=== PATIENT | male | born 1965 | race Caucasian/White ===

== ENCOUNTER 2017-01-14 23:57 | Inpatient (IN) | payer MEDICAID ==
[~2017-01-14] VITALS: Ht 170.2 cm; Wt 73.3 kg
[2017-01-15] MEDS ORDERED: VANCOMYCIN 1 GM (PMX) 250 ML IVPB STA (01:34)
[2017-01-15] MEDS ORDERED: SODIUM CHLORIDE 0.9% 1L BAG IV* STA (01:34)
[2017-01-15] MEDS ORDERED: DICLOFENAC SODIUM 37.5 MG/ML VIAL IV STA (01:52)
[2017-01-15 02:00] LABS: ADD SCAN DIFF NO
[2017-01-15 02:04] LABS: BASOPHIL # 0.1 10^3/ul (0.0-0.1); BASOPHILS % 0.5 % (0.0-2.0); EOSINOPHILS # 0.3 10^3/ul (0.0-0.5); EOSINOPHILS % 2.5 % (0.0-7.0); HEMATOCRIT 42.4 % (42.0-52.0); HEMOGLOBIN 14.2 g/dl (14.0-18.0); LYMPHOCYTES # 1.7 10^3/ul (0.8-2.9); LYMPHOCYTES % 13.6 % (15.0-51.0); MEAN CORPUSCULAR HEMOGLOBIN 29.6 pg (29.0-33.0); MEAN CORPUSCULAR HGB CONC 33.5 g/dl (32.0-37.0); MEAN CORPUSCULAR VOLUME 88.5 fl (82.0-101.0); MEAN PLATELET VOLUME 9.5 fl (7.4-10.4); MONOCYTES % 7.5 % (0.0-11.0); NEUTROPHIL # 9.7 10^3/ul (1.6-7.5); NEUTROPHILS % 75.1 % (39.0-77.0); PLATELET COUNT 278 10^3/UL (140-415); RED BLOOD COUNT 4.79 10^6/ul (4.70-6.10); RED CELL DISTRIBUTION WIDTH 12.6 % (11.5-14.5); WHITE BLOOD COUNT 12.8 10^3/ul (4.8-10.8)
[2017-01-15 02:16] VITALS: TEMP 98.5
[2017-01-15 02:19] LABS: INR 1.07; PROTIME 13.9 Sec (12.2-14.2); PT RATIO 1.1
[2017-01-15 02:20] LABS: PARTIAL THROMBOPLASTIN TIME 35.8 Sec (25.0-35.0)
[2017-01-15 02:24] LABS: ALBUMIN 3.9 g/dl (3.3-4.9); BILIRUBIN,INDIRECT 0.4 mg/dl (0-1.1); BILIRUBIN,TOTAL 0.4 mg/dl (0.2-1.3); CREATININE 0.79 mg/dl (0.61-1.24); POTASSIUM 4.5 mmol/L (3.5-5.1); TOTAL PROTEIN 7.8 g/dl (6.1-8.1)
[2017-01-15] MEDS ORDERED: SOD CHLORIDE 0.9% 100 ML ONE (02:44)
[2017-01-15] MEDS ORDERED: IOHEXOL 300MG/ML 150 ML BTL ONE (02:44)
--- NOTE | 2017-01-15 03:37 | RADRPT ---
PROCEDURE: CT soft tissue neck with contrast CLINICAL INDICATION: large posterior neck abscess TECHNIQUE: Thin section spiral CT images through the neck after intravenous administration of 1 an d cc of Omnipaque-300. Coronal and sagittal reformations were obtained. The images were reviewed on a PACS workstation. The total CTDIvol is 10.18 mGy and the DLP is 325.04 mGy-cm. One or more of the following dose reduction techniques were used: automated exposure control, adjustment of the mA and/ or kV according to patient size, or use of iterative reconstruction technique. COMPARISON: No prior studies are available for comparison. FINDINGS: The nasopharynx, oropharynx, hypopharynx, and larynx are all normal in appearance. The thyroid is n ormal in size without focal nodule seen. The mandibular and parotid glands are unremarkable in appe arance. No adenopathy is seen. No lytic or blastic bony lesion is seen.. There is extensive skin thickening and inflammation of the skin and subcutaneous soft tissues of the posterior neck extendin g from the C3 to C7 level. Phlegmonous changes most prominent from C4-C6 but there is not a well-de fined drainable fluid collection present. Shotty bilateral cervical nodes are seen. Degenerative c hange of the spine is seen. IMPRESSION: Cellulitis with phlegmonous change of the posterior neck soft tissues most prominent from the C4-C6 level. No definite focal drainable fluid collection. RPTAT: [facility] Physician Tariq Date Time Electronically viewed and signed by Physician Tariq on 01/15/2017 03:37 PRAKASH/
[2017-01-15] MEDS ORDERED: ONDANSETRON 4 MG INJ IV PRN ×2 (04:00→06:30)
[2017-01-15] MEDS ORDERED: ACETAMINOPHEN 325 MG TAB PO PRN ×2 (04:00→06:30)
--- NOTE | 2017-01-15 04:19 | ERA ---
ER Documentation Chief Complaint Date/Time DATE: 01/15/17 TIME: 04:03 Chief Complaint abscess back of neck, states poss insect bite today? HPI 51-year-old male with no significant past medical history presenting with pain in the back of his neck with associated swelling. He states that 2 days ago he felt a lump that was painless in the area. Yesterday however he started getting pain and worsening swelling of the back of his neck. He has associated generalized fatigue but denies any fever, chills, numbness or tingling in his arms or legs, chest pain, shortness of breath, change in vision, or headache. He denies any recent trauma to the area. ROS All systems reviewed and are negative except as per history of present illness. Medications Home Meds No Active Prescriptions or Reported Meds Allergies Allergies: Coded Allergies: No Known Drug Allergies (Verified Allergy, Unknown, 01/15/17) PMhx/Soc Medical and Surgical Hx: pt denies Medical Hx, pt denies Surgical Hx Hx Alcohol Use: No Hx Substance Use: No Hx Tobacco Use: No Smoking Status: Unknown if ever smoked FmHx Family History: No diabetes Physical Exam Vitals Vital Signs Date Time Temp Pulse Resp B/P Pulse Ox O2 Delivery O2 Flow Rate FiO2 01/15/17 02:16 98.5 102 20 147/103 100 Room Air 01/15/17 00:06 98.4 114 20 155/92 100 Physical Exam Const: Well-appearing, no apparent distress, nontoxic Head: Atraumatic Eyes: Normal Conjunctiva ENT: Normal External Ears, Nose and Mouth. Neck: Limited range of motion secondary to pain in the back of his neck. There is a large area extending from his mid cervical spine area down to his upper thoracic area of induration, erythema, warmth with overlying skin ulceration with purulence but no active drainage. No meningismus. It is slightly tender to palpation. There is no palpable crepitus or skin discoloration Resp: Clear to auscultation bilaterally Cardio: Regular rate and rhythm, no murmurs. 2+ distal pulses Abd: Soft, non tender, non distended. Normal bowel sounds Skin: No petechiae or rashes Back: No midline or flank tenderness Ext: No cyanosis, or edema Neur: Awake and alert and oriented 3, strength and sensations intact in all 4 extremities Psych: Normal Mood and Affect Result Diagram: 01/15/17 0131 01/15/17 0131 Results 24 hrs Laboratory Tests Test 01/15/17 01:25 01/15/17 01:31 Lactic Acid Level 0.9mmol/L White Blood Count 12.810^3/ul Red Blood Count 4.7910^6/ul Hemoglobin 14.2g/dl Hematocrit 42.4% Mean Corpuscular Volume 88.5fl Mean Corpuscular Hemoglobin 29.6pg Mean Corpuscular Hemoglobin Concent 33.5g/dl Red Cell Distribution Width 12.6% Platelet Count 46430^3/UL Mean Platelet Volume 9.5fl Neutrophils % 75.1% Lymphocytes % 13.6% Monocytes % 7.5% Eosinophils % 2.5% Basophils % 0.5% Nucleated Red Blood Cells % 0.0/100WBC Neutrophils # 9.710^3/ul Lymphocytes # 1.710^3/ul Monocytes # 1.010^3/ul Eosinophils # 0.310^3/ul Basophils # 0.110^3/ul Nucleated Red Blood Cells # 0.010^3/ul Prothrombin Time 13.9Sec Prothrombin Time Ratio 1.1 INR International Normalized Ratio 1.07 Activated Partial Thromboplast Time 35.8Sec Sodium Level 134mmol/L Potassium Level 4.5mmol/L Chloride Level 99mmol/L Carbon Dioxide Level 27mmol/L Anion Gap 13 Blood Urea Nitrogen 12mg/dl Creatinine 0.79mg/dl Glucose Level 111mg/dl Calcium Level 9.0mg/dl Total Bilirubin 0.4mg/dl Direct Bilirubin 0.00mg/dl Indirect Bilirubin 0.4mg/dl Aspartate Amino Transf (AST/SGOT) 28IU/L Alanine Aminotransferase (ALT/SGPT) 48IU/L Alkaline Phosphatase 95IU/L Total Protein 7.8g/dl Albumin 3.9g/dl Globulin 3.90g/dl Albumin/Globulin Ratio 1.00 Current Medications Medications (Trade) Dose Ordered Sig/Rohan Route PRN Reason Start Time Stop Time Status Last Admin Dose Admin Sodium Chloride 2260 ml 2,260 ml BOLUS OVER 2 HOURS STAT IV* 01/15/17 01:34 01/15/17 01:36 DC 01/15/17 01:54 Vancomycin HCl (Vancocin) 250 ml @ 125 mls/hr ONCE STAT IVPB 01/15/17 01:34 01/15/17 03:33 DC 01/15/17 01:54 Diclofenac Sodium 37.5 mg 37.5 mg ONCE STAT IV 01/15/17 01:52 01/15/17 01:53 DC 01/15/17 01:55 Sodium Chloride (NS) 100 ml @ ud STK-MED ONCE .ROUTE 01/15/17 02:44 01/15/17 02:45 DC Iohexol (Omnipaque 300mg/ ml) 150 ml STK-MED ONCE .ROUTE 01/15/17 02:44 01/15/17 02:45 DC Ondansetron HCl (Zofran Inj) 4 mg BRIDGE ORDER PRN IV NAUSEA AND/OR VOMITING 01/15/17 04:00 01/16/17 03:59 Acetaminophen (Tylenol Tab) 650 mg ER BRIDGE PRN PO MILD PAIN/FEVER 01/15/17 04:00 01/16/17 03:59 Procedures/MDM Labs: CBC shows mild leukocytosis, BMP normal CT soft tissue neck with contrast CLINICAL INDICATION: large posterior neck abscess TECHNIQUE: Thin section spiral CT images through the neck after intravenous administration of 1 and cc of Omnipaque-300. Coronal and sagittal reformations were obtained. The images were reviewed on a PACS workstation. The total CTDIvol is 10.18 mGy and the DLP is 325.04 mGy-cm. One or more of the following dose reduction techniques were used: automated exposure control, adjustment of the mA and/or kV according to patient size, or use of iterative reconstruction technique. COMPARISON: No prior studies are available for comparison. FINDINGS: The nasopharynx, oropharynx, hypopharynx, and larynx are all normal in appearance. The thyroid is normal in size without focal nodule seen. The mandibular and parotid glands are unremarkable in appearance. No adenopathy is seen. No lytic or blastic bony lesion is seen.. There is extensive skin thickening and inflammation of the skin and subcutaneous soft tissues of the posterior neck extending from the C3 to C7 level. Phlegmonous changes most prominent from C4-C6 but there is not a well-defined drainable fluid collection present. Shotty bilateral cervical nodes are seen. Degenerative change of the spine is seen. IMPRESSION: Cellulitis with phlegmonous change of the posterior neck soft tissues most prominent from the C4-C6 level. No definite focal drainable fluid collection. RPTAT: [facility] Physician Tariq Date Time Electronically viewed and signed by Talia Cleaning Physician on 01/15/2017 03 :37 MDM Patient is presenting with a posterior neck cellulitis with possible abscess. Vitals are stable and he is afebrile. He is neurologically intact. I have a low suspicion for necrotizing fasciitis. A CT scan was done to evaluate the extent of the infection as well as to evaluate for any drainable abscess. CT did not show a specific drainable fluid collection but did show phlegmon. It does not seem to invade the spinal column. Patient was started on vancomycin. Blood cultures were sent. Patient will need admission for IV antibiotics and possible evaluation by surgery as this may need debridement. Accepting Care Team: Current data and ongoing care discussed. Time: Time of admission Primary Provider: Corinne Outstanding Data: cultures Departure Diagnosis: Primary Impression: Cellulitis of neck Condition: Serious BRIAN ARCHER MD January 15, 2017 04:13
[2017-01-15] MEDS ORDERED: NACL 0.9% 3 ML SYG IV SCH (06:30)
[2017-01-15] MEDS ORDERED: VANCOMYCIN IV PER PHARMACY XX SCH (06:30)
[2017-01-15] MEDS ORDERED: HYDROCODONE/APAP (5/325) TAB PO PRN ×2 (06:30)
[2017-01-15] MEDS ORDERED: morphine 2 MG INJ IV PRN (06:30)
[2017-01-15] MEDS: PIPER-TAZO 3.375 GM IV (PMX) 100 ML IVPB SCH ×4 (07:04→23:17)
--- NOTE | 2017-01-15 07:56 | HP ---
DATE OF ADMISSION: 01/14/2017 TIME SEEN: 5:45 a.m. CHIEF COMPLAINT: Neck swelling and pain. HISTORY OF PRESENT ILLNESS: The patient is a 51-year-old male with no significant past medical hist ory, who presented to the emergency department complaining of swelling on the back of his neck, as w ell as pain in that area. He stated his symptoms started 2 days ago. He stated at that time there was a swollen area on the back of his neck, which had been progressively getting bigger, as well as the pain has been progressively getting worse. He reported generalized weakness. Denied chest pain , fever or chills. Denied difficulty breathing or swallowing. When he presented to the ER, blood pressure was 155/92, heart rate 114, respiratory rate 20, tempera ture 98.4, oxygen saturation 100% on room air. Labs show a WBC of 12.8. Sodium 134. Otherwise CBC and CMP are within normal limits. CT of the neck with contrast shows cellulitis with phlegmonous ch corey of the posterior neck soft tissues, most prominent from C4-C6 level. No definite focal drainab le fluid collection. The patient had been given vancomycin while he was in the ER. REVIEW OF SYSTEMS: All 12-point review of systems was performed and negative except as mentioned in the HPI. PAST MEDICAL HISTORY: As per HPI. PAST SURGICAL HISTORY: As per HPI. ALLERGIES: NO KNOWN DRUG ALLERGIES. HOME MEDICATIONS: None. PHYSICAL EXAMINATION: VITAL SIGNS: Stable. GENERAL: The patient looks somehow uncomfortable because of the pain on his back. HEENT: No obvious head deformity. Pupils are reactive to light. There is swelling and tenderness at the back of the neck. CARDIOVASCULAR: Tachycardic, with a regular rhythm. LUNGS: Clear. ABDOMEN: Soft, nontender, nondistended. Positive bowel sounds. EXTREMITIES: No edema. NEUROLOGIC: No focal deficits. LABORATORY: Sodium 134. WBC 12.8. Otherwise, CBC and CMP are within normal limits. IMAGING: CT of the neck with results as mentioned in the HPI. IMPRESSION: 1. Cellulitis with phlegmonous change of the posterior neck. 2. Sepsis, as evidenced by leukocytosis and tachycardia, secondary to above. 3. Mild hyponatremia. PLAN: We will place the patient on broad spectrum antibiotics. He will be seen by the surgical derrell villa. Will place an infectious disease consult. Will provide pain medication as needed. Will monitor him closely. Will correct electrolytes as needed. Further workup and management per clinical course. Dictated By: AMANDA MELCHOR/VITOR Conf#: [id number] DID#: [id number]
[2017-01-15] MEDS ORDERED: VANCOMYCIN 1 GM in NS 250 ML IVPB SCH (10:00)
[2017-01-15 14:00] VITALS: BP 129/88; PULSE 68
[2017-01-15 14:16] VITALS: Ht 170.2 cm; Wt 73.3 kg
--- NOTE | 2017-01-15 15:18 | PN ---
Date/Time of Note Date/Time of Note DATE: 01/15/17 TIME: 15:13 Assessment/Plan VTE Prophylaxis VTE Prophylaxis Intervention: ambulation Lines/Catheters [facility] Saline Lock Assessment/Plan Chief Complaint/Hosp Course Assessment and plan 1. Sepsis from posterior neck abscess/cellulitis. Continue on antibiotics for now. We'll get ID consult as well as surgical consult. Antipyretics as needed for fever. 2. Leukocytosis secondary to #1. Continue antibiotics 3. Hyponatremia. Follow up on level in a.m. Disposition and plan: Continue on antibiotics await surgical and ID consult input Discussed in appearance Dr. Nation Problems: Subjective 24 Hr Interval Summary Free Text/Dictation No current distress at this time. Does not report any pain on his posterior neck. Seen with drainage and malodorous on posterior neck abscess Exam/Review of Systems Vital Signs Vitals Vital Signs Date Time Temp Pulse Resp B/P Pulse Ox O2 Delivery O2 Flow Rate FiO2 01/15/17 07:09 93 17 123/98 98 Room Air 01/15/17 02:16 98.5 Intake and Output 01/14/17 01/14/17 01/15/17 15:00 23:00 07:00 Intake Total 2510 ml Balance 2510 ml Exam Constitutional: alert, oriented Psych: nl mood/affect Head: normocephalic Neck: other (abscess seen on posterior side of the neck with whitish pus and malodorous) Respiratory: normal air movement Cardiovascular: regular rate and rhythm Gastrointestinal: non-tender, soft Musculoskeletal: nl extremities to inspection Extremities: normal pulses Results Result Diagram: 01/15/17 0131 01/15/17 0131 Results 24 hrs Laboratory Tests Test 01/15/17 01:25 01/15/17 01:31 Lactic Acid Level 0.9 White Blood Count 12.8 H Red Blood Count 4.79 Hemoglobin 14.2 Hematocrit 42.4 Mean Corpuscular Volume 88.5 Mean Corpuscular Hemoglobin 29.6 Mean Corpuscular Hemoglobin Concent 33.5 Red Cell Distribution Width 12.6 Platelet Count 278 Mean Platelet Volume 9.5 Neutrophils % 75.1 Lymphocytes % 13.6 L Monocytes % 7.5 Eosinophils % 2.5 Basophils % 0.5 Nucleated Red Blood Cells % 0.0 Neutrophils # 9.7 H Lymphocytes # 1.7 Monocytes # 1.0 H Eosinophils # 0.3 Basophils # 0.1 Nucleated Red Blood Cells # 0.0 Prothrombin Time 13.9 Prothrombin Time Ratio 1.1 INR International Normalized Ratio 1.07 Activated Partial Thromboplast Time 35.8 H Sodium Level 134 L Potassium Level 4.5 Chloride Level 99 Carbon Dioxide Level 27 Anion Gap 13 Blood Urea Nitrogen 12 Creatinine 0.79 Glucose Level 111 Calcium Level 9.0 Total Bilirubin 0.4 Direct Bilirubin 0.00 Indirect Bilirubin 0.4 Aspartate Amino Transf (AST/SGOT) 28 Alanine Aminotransferase (ALT/SGPT) 48 Alkaline Phosphatase 95 Total Protein 7.8 Albumin 3.9 Globulin 3.90 H Albumin/Globulin Ratio 1.00 Medications Medications Current Medications Ondansetron HCl (Zofran Inj) 4 mg Q6H PRN IV NAUSEA AND/OR VOMITING; Start 07/24 at 06:30 Acetaminophen (Tylenol Tab) 650 mg Q6H PRN PO PAIN LEVEL 1-3 OR FEVER; Start at 06:30 Acetaminophen/ Hydrocodone Bitart ([place] (5/325)) 1 tab Q6H PRN PO MODERATE PAIN LEVEL 4-6; Start 01/15/17 at 06:30 Acetaminophen/ Hydrocodone Bitart ([place] (5/325)) 2 tab Q6H PRN PO SEVERE PAIN LEVEL 7-10; Start 01/15/17 at 06:30 Morphine Sulfate 2 mg 2 mg Q4H PRN IV SEVERE PAIN LEVEL 7-10; Start 01/15/17 at 06:30 Piperacillin Sod/ Tazobactam Sod 100 ml @ 200 mls/hr Q6 IVPB Last administered on 01/15/17 07:04; Admin Dose 200 MLS/HR; Start 01/15/17 at 06:30 Vancomycin HCl (Vancocin) 250 ml @ 125 mls/hr Q8H IVPB Last administered on 10:13; Admin Dose 125 MLS/HR; Start 01/15/17 at 10:00 Miscellaneous Information (*Rx Drug Level Order Reminder*) 1 ONCE ONCE XX ; Start 01/16/17 at 01:00; Stop 01/16/17 at 01:01 PRIYANKA CAMEJO January 15, 2017 15:18
--- NOTE | 2017-01-15 16:42 | CONS ---
DATE OF ADMISSION: 01/15/2017 DATE OF CONSULTATION: 01/15/2017 TYPE OF CONSULTATION: Infectious Disease. REASON FOR CONSULTATION: Antibiotic management. HISTORY OF PRESENT ILLNESS: Keven Villarreal is a 51-year-old male generally in good health, who present ed to the emergency room with swelling on the back of his neck as well as pain in that area. The sy mptoms have lasted for 2 days. It has been progressively getting bigger and the pain has been worse . Denies any difficulty in swallowing. In the emergency room, his labs were relatively normal, whi te count of 12.8, H and H of 14.2 and 42.4, platelet count of 278,000. BUN and creatinine are 12/0. 79. Soft tissue neck CT shows cellulitis with phlegmonous change in the posterior neck soft tissue, most prominent at C4, C6. No definite focal drainable fluid collection. The patient was started o n vancomycin in the emergency room. PAST MEDICAL HISTORY: Operations as outlined. FAMILY HISTORY: Noncontributory. SOCIAL HISTORY: Does not smoke, drink or abuse drugs. ALLERGIES: NONE TO PENICILLIN, SULFA OR FOODS. MEDICATIONS: Per chart. REVIEW OF SYSTEMS: As per HPI. PHYSICAL EXAMINATION: GENERAL: The patient is a well-developed, well-nourished male who is somewhat uncomfortable because of his neck pain, no acute distress. VITAL SIGNS: Stable. He is afebrile. SKIN: Without generalized rash. NECK: There is swelling and tenderness in the back of the neck. LYMPH NODES: None palpable. CHEST: Decreased breath sounds at the bases. HEART: Tachycardic without murmur or gallop. ABDOMEN: Soft and nontender, without organosplenomegaly or masses. EXTREMITIES: Without cyanosis, clubbing, or edema. RECTAL AND GENITAL: Deferred. NEUROLOGIC: No focal neurological abnormalities. IMPRESSION AND PLAN: The patient presents now with cellulitis of the nape of the neck, the etiology of which is unclear. He will be seen by the surgical team. It is unclear why he has developed thi s cellulitis. We will treat him with vancomycin for the time being. A wound care consultation was put in. Blood cultures have been ordered. I will dictate my findings to the hospitalist. Dictated By: JANELLE VICTOR MD, JD/VITOR Conf#: [id number] DID#: [id number]
[2017-01-15 19:56] VITALS: BP 124/83; RESP 20
[2017-01-15] MEDS: VANCOMYCIN 1 GM in NS 250 ML IVPB SCH (23:11)
[2017-01-16] VITALS (11 sets, daily range): BP systolic 98–129; BP diastolic 59–87; PULSE 78–84; RESP 15–28
[2017-01-16] MEDS: PIPER-TAZO 3.375 GM IV (PMX) 100 ML IVPB SCH ×3 (05:49→18:41)
[2017-01-16 06:21] LABS: ADD SCAN DIFF NO
[2017-01-16 06:29] LABS: BASOPHILS % 0.3 % (0.0-2.0); EOSINOPHILS # 0.5 10^3/ul (0.0-0.5); EOSINOPHILS % 6.6 % (0.0-7.0); HEMATOCRIT 41.6 % (42.0-52.0); HEMOGLOBIN 13.9 g/dl (14.0-18.0); LYMPHOCYTES # 1.3 10^3/ul (0.8-2.9); LYMPHOCYTES % 17.8 % (15.0-51.0); MEAN CORPUSCULAR HEMOGLOBIN 29.6 pg (29.0-33.0); MEAN CORPUSCULAR HGB CONC 33.4 g/dl (32.0-37.0); MEAN CORPUSCULAR VOLUME 88.7 fl (82.0-101.0); MEAN PLATELET VOLUME 9.4 fl (7.4-10.4); MONOCYTE # 0.8 10^3/ul (0.3-0.9); MONOCYTES % 10.7 % (0.0-11.0); NEUTROPHIL # 4.4 10^3/ul (1.6-7.5); NEUTROPHILS % 62.7 % (39.0-77.0); PLATELET COUNT 247 10^3/UL (140-415); RED BLOOD COUNT 4.69 10^6/ul (4.70-6.10); RED CELL DISTRIBUTION WIDTH 12.8 % (11.5-14.5)
[2017-01-16] MEDS: VANCOMYCIN 1 GM in NS 250 ML IVPB SCH ×3 (07:13→22:32)
[2017-01-16 07:54] LABS: CREATININE 0.84 mg/dl (0.61-1.24)
[2017-01-16] MEDS ORDERED: LIDOCAINE 100 MG SYRINGE ONE (12:12)
[2017-01-16] MEDS ORDERED: PROPOFOL 20 ML ONE (12:12)
[2017-01-16] MEDS ORDERED: MIDAZOLAM 1 MG/ML 2 ML INJ ONE (12:13)
[2017-01-16] MEDS ORDERED: FENTAnyl 50 MCG/ML VIAL ONE (12:13)
[2017-01-16] MEDS ORDERED: ONDANSETRON 4 MG INJ ONE (12:13)
[2017-01-16] MEDS ORDERED: DEXAMETHASONE 4 MG/ML 1 ML INJ ONE (12:13)
--- NOTE | 2017-01-16 12:51 | PN ---
Date/Time of Note Date/Time of Note DATE: 01/16/17 TIME: 12:45 Assessment/Plan Lines/Catheters IV Catheter Type (from Nrs): Saline Lock Assessment/Plan Chief Complaint/Hosp Course 1. Posterior neck cellulitis wound and probable abscess -Antibiotics -Warm compress -OR today for debridement and further I&D 2. Generalized rash possible allergy to antibiotics (? Vanco) -Deferred to medical team for further workup. 3. Anemia probably dilutional Monitor 4. Hypertension -Medication and diet optimization 5. Hyponatremia -Please correct with fluid management Thank you, Problems: Subjective 24 Hr Interval Summary Minimal posterior neck pain. Low-grade fever but no chills. No chest pain or shortness of breath. No visual neurologic changes. No dysuria. No abdominal pain. No cough. No seizure. Has generalized rashes. Exam/Review of Systems Vital Signs Vitals Vital Signs Date Time Temp Pulse Resp B/P Pulse Ox O2 Delivery O2 Flow Rate FiO2 01/16/17 07:26 98.0 90 16 101/64 97 01/15/17 14:00 Room Air Intake and Output 01/15/17 01/15/17 01/16/17 15:00 23:00 07:00 Intake Total 100 ml 850 ml 830 ml Balance 100 ml 850 ml 830 ml Exam Constitutional: alert, oriented, No distress Psych: nl mood/affect, No anxiety, No confusion Head: atraumatic, normocephalic, No hematomas Eyes: EOMI, PERRL, nl conjunctiva, No icteric ENMT: mucosa pink and moist, nl external ears & nose, nl lips & teeth Neck: other (Posterior neck erythema wound and induration), supple, No jvd, No non-tender (posterior neck) Respiratory: normal air movement, No congested cough, No labored breathing Cardiovascular: regular rate and rhythm, No edema Gastrointestinal: non-tender, soft, No rebound or guarding Musculoskeletal: nl extremities to inspection, nl gait and stance, No joint tenderness Extremities: No calf tenderness, No cyanosis Neurological: nl mental status, nl speech, nl strength Skin: rash or lesions, No diaphoresis Lymph: nl lymph nodes Results Result Diagram: 01/16/17 0552 01/16/17 0552 PIA OLIVEIRA MD January 16, 2017 12:51
--- NOTE | 2017-01-16 13:54 | CONS ---
DATE OF ADMISSION: 01/15/2017 DATE OF CONSULTATION: 01/15/2017 TYPE OF CONSULTATION: Surgical. REFERRING PHYSICIAN: Ariel Sun MD CHIEF COMPLAINT: 1. Posterior neck cellulitis and possible abscess. 2. Leukocytosis. HISTORY OF PRESENT ILLNESS: Mr. Keven Villarreal is a 51-year-old male who presents with swelling, pain, and redness of the upper back and posterior neck for the past 2 days that has been getting worse, a ssociated with generalized fatigue, but no fevers, chills, visual or neurologic changes, chest pain, shortness of breath, cough, seizure, bloating, abdominal pain, dysuria, or change in bowel habits. The patient's workup in the emergency room found him to be afebrile with stable vitals; however, he had leukocytosis. CT scan of the area identified cellulitis with phlegmonous changes of the head of english ior neck soft tissue, most prominent from C4-C6 level. No definite drainable fluid collection was n oted. The patient is admitted and a surgical consult is obtained for further evaluation and treatme nt. PAST MEDICAL HISTORY: 1. Hypertension. 2. Posterior neck abscess and cellulitis. 3. Leukocytosis. 4. Bronchitis history. PAST SURGICAL HISTORY: Denies. MEDICATIONS: Denies. ALLERGIES: NONE. SOCIAL HISTORY: Drinks alcohol socially. Does not smoke. No recreational drugs. FAMILY HISTORY: Hypertension in mom and siblings. Father with confusion. REVIEW OF SYSTEMS: A 12-point review of systems was negative unless addressed in the HPI. PHYSICAL EXAMINATION: PERTINENT VITAL SIGNS: Temperature is 98.2, pulse 60s to 90s, blood pressure 129/88, saturating 94% on room air. GENERAL: In no acute distress, comfortable, pleasant. HEENT: Pupils are equal and reactive. No scleral icterus. Mucous membranes are moist. NECK: Supple. No JVD; however, the posterior neck with blanching erythema, induration and an open wound with necrotic tissue. PULMONARY: Normal respiratory effort. No wheezing. HEART: S1, S2 present. ABDOMEN: Soft, nontender. EXTREMITIES: No edema. VASCULAR: Capillary refill is 2 seconds. NEUROLOGIC: Alert, oriented, moves all 4 extremities grossly. LABORATORY AND RADIOGRAPHIC: As per chart and HPI. ASSESSMENT AND PLAN: 1. Posterior neck cellulitis, wound and probable abscess. Continue antibiotics, warm compresses an d will need debridement. 2. Leukocytosis secondary to above. Treatment as above. Continue antibiotics. 3. Hypertension. Continue nutrition and medication optimization. 4. Hyponatremia. Please correct with fluid management. 5. Bronchitis history. Continue pulmonary toilet. Thank you very much for consulting me in this patient's care. Dictated By: PIA FLOYD/VITOR Conf#: [id number] DID#: [id number]
[2017-01-16] MEDS ORDERED: DIPHENHYDRAMINE 50 MG INJ IV PRN (14:00)
[2017-01-16] MEDS ORDERED: MEPERIDINE 25 MG INJ IV PRN (14:00)
[2017-01-16] MEDS ORDERED: ONDANSETRON 4 MG INJ IV PRN (14:00)
[2017-01-16] MEDS ORDERED: HYDROmorphONE (0.2 MG/ML) 10ML SYG IV PRN ×3 (14:00)
--- NOTE | 2017-01-16 14:09 | PN ---
Date/Time of Note Date/Time of Note DATE: 01/16/17 TIME: 14:06 Assessment/Plan VTE Prophylaxis VTE Prophylaxis Intervention: SCD's Lines/Catheters IV Catheter Type (from Nrs): Saline Lock Assessment/Plan Chief Complaint/Hosp Course Assessment and plan 1. Sepsis from posterior neck abscess/cellulitis. Continue on antibiotics for now. ID consult following. Await wound cultures result 2. Leukocytosis secondary to #1. Continue antibiotics 3. Hyponatremia. stable will monitor Disposition and plan: Follow-up on final wound culture results. Continue diuretics for now. Follow-up postop Discussed in appearance Dr. Nation Problems: Subjective 24 Hr Interval Summary Free Text/Dictation Patient for debridement of posterior neck wound Exam/Review of Systems Vital Signs Vitals Vital Signs Date Time Temp Pulse Resp B/P Pulse Ox O2 Delivery O2 Flow Rate FiO2 01/16/17 13:34 98.7 01/16/17 07:26 90 16 101/64 97 01/15/17 14:00 Room Air Intake and Output 01/15/17 01/15/17 01/16/17 15:00 23:00 07:00 Intake Total 100 ml 850 ml 830 ml Balance 100 ml 850 ml 830 ml Exam patient for debridement of posterior neck wound Results Result Diagram: 01/16/17 0552 01/16/17 0552 Results 24 hrs Laboratory Tests Test 01/16/17 05:52 White Blood Count 7.0 # Red Blood Count 4.69 L Hemoglobin 13.9 L Hematocrit 41.6 L Mean Corpuscular Volume 88.7 Mean Corpuscular Hemoglobin 29.6 Mean Corpuscular Hemoglobin Concent 33.4 Red Cell Distribution Width 12.8 Platelet Count 247 Mean Platelet Volume 9.4 Neutrophils % 62.7 Lymphocytes % 17.8 Monocytes % 10.7 Eosinophils % 6.6 Basophils % 0.3 Nucleated Red Blood Cells % 0.0 Neutrophils # 4.4 Lymphocytes # 1.3 Monocytes # 0.8 Eosinophils # 0.5 Basophils # 0.0 Nucleated Red Blood Cells # 0.0 Blood Urea Nitrogen 10 Creatinine 0.84 Vancomycin Level Trough 8.1 L Medications Medications Current Medications Ondansetron HCl (Zofran Inj) 4 mg Q6H PRN IV NAUSEA AND/OR VOMITING; Start 07/24 at 06:30 Acetaminophen (Tylenol Tab) 650 mg Q6H PRN PO PAIN LEVEL 1-3 OR FEVER; Start at 06:30 Acetaminophen/ Hydrocodone Bitart ([place] (5/325)) 1 tab Q6H PRN PO MODERATE PAIN LEVEL 4-6; Start 01/15/17 at 06:30 Acetaminophen/ Hydrocodone Bitart ([place] (5/325)) 2 tab Q6H PRN PO SEVERE PAIN LEVEL 7-10; Start 01/15/17 at 06:30 Morphine Sulfate 2 mg 2 mg Q4H PRN IV SEVERE PAIN LEVEL 7-10 Last administered on 01/16/17 14:04; Admin Dose 2 MG; Start 01/15/17 at 06:30 Piperacillin Sod/ Tazobactam Sod 100 ml @ 200 mls/hr Q6 IVPB Last administered on 01/16/17 05:49; Admin Dose 200 MLS/HR; Start 01/15/17 at 06:30 Vancomycin HCl (Vancocin) 250 ml @ 125 mls/hr Q8H IVPB Last administered on 07:13; Admin Dose 125 MLS/HR; Start 01/15/17 at 23:00 PRIYANKA CAMEJO January 16, 2017 14:09
--- NOTE | 2017-01-16 14:19 | OPR ---
Date/Time of Note Date/Time of Note DATE: 01/16/17 TIME: 14:15 Operative Report Procedure Date: January 16, 2017 Preoperative Diagnosis Posterior neck upper back abscess and necrotic wound Postoperative Diagnosis Same, 6 x 2 cm Operation Performed 1. Excisional debridement of skin, subcutaneous, fascia. 11 x 2 cm 2. Incision and drainage of lower posterior neck and upper back abscess Surgeon: PIA OLIVEIRA MD Anesthesia: general Anesthesiologist: NAGA IRVIN Estimated Blood Loss: 10 - 50 ml's Specimens Culture Tissue Tubes/Drains Curlex Complications: None Pt Condition Post Procedure: stable Disposition: PACU Indications Per notes Risks include but are not limited to bleeding, persistent infection, worsening infection, spinal column spread of infection, need for further surgeries, neurologic malfunction, WA, PE, stroke, pneumonia, DVT, organ failures, or even . Patient understands and agrees to proceed with surgery. Procedure Description Patient was brought in on his own bed to the OR. After induction of anesthesia he was placed in lateral decubitus position. All pressure points were well- padded. Patient is already on antibiotics. Timeout was performed. He was prepped and draped in usual sterile fashion. Using electrocautery skin, subcutaneous, and devitalized fascia were excised down to healthier tissue. Hemostasis was obtained. Pockets of pus were identified and drained. Wound was irrigated and packed with Betadine soaked Kerlix. Dry dressing was applied. Patient was taken back to recovery room in stable condition. All counts were correct at the end of the operation 2. PIA OLIVEIRA MD January 16, 2017 14:19
--- NOTE | 2017-01-16 14:23 | PN ---
DATE: 01/16/2017 SUBJECTIVE: No events overnight. The patient is having low-grade fevers. He is in no distress. LABORATORY DATA: WBC 7, no shift, no bands. BUN 10, creatinine 0.84. MICROBIOLOGY: Wound culture growing Staphylococcus aureus, preliminary. ANTIMICROBIALS: The patient is on: 1. IV vancomycin. 2. Zosyn. PHYSICAL EXAMINATION: GENERAL: Well-developed, middle-aged man who is alert, in no distress. HEENT: Head atraumatic, normocephalic. Sclerae anicteric. Buccal mucosa dry. NECK: Supple, trachea midline. There is some tenderness in the back of the neck. CHEST: Rise symmetrical. Breath sounds diminished to bases. HEART: S1, S2. ABDOMEN: Soft, bowel sounds present. EXTREMITIES: Without cyanosis. ASSESSMENT: 1. Posterior neck abscess with cellulitis. 2. Hypertension. 3. Systemic inflammatory response syndrome. PLAN: Remains stable. Continue present care, antibiotics. Await for wound cultures. Pending I an d D. Dictated By: JIMBO MEDRANO REED DIPPER for JANELLE ALVARADO/VITOR Conf#: [id number] DID#: [id number]
[2017-01-17] MEDS: PIPER-TAZO 3.375 GM IV (PMX) 100 ML IVPB SCH ×5 (00:48→23:09)
[2017-01-17] MEDS: VANCOMYCIN 1 GM in NS 250 ML IVPB SCH ×3 (06:42→23:57)
[2017-01-17 07:38] VITALS: BP 107/70; RESP 18
--- NOTE | 2017-01-17 15:19 | PN ---
Date/Time of Note Date/Time of Note DATE: 01/17/17 TIME: 15:17 Assessment/Plan VTE Prophylaxis VTE Prophylaxis Intervention: SCD's Lines/Catheters IV Catheter Type (from Nrsg): Saline Lock Assessment/Plan Chief Complaint/Hosp Course Assessment and plan 1. Sepsis from posterior neck abscess/cellulitis. Continue on antibiotics for now. ID consult following. Status post I&D. Continue wound care per surgeon recommendations 2. Leukocytosis secondary to #1. Continue antibiotics 3. Hyponatremia. stable will monitor Disposition and plan: Continue antibiotics. Continue wound care per surgeon recommendations. Discharge when medically stable and cleared by consultants Discussed in appearance Dr. Nation Problems: Subjective 24 Hr Interval Summary Free Text/Dictation Comfortable at this time. Denies any pain on posterior neck Exam/Review of Systems Vital Signs Vitals Vital Signs Date Time Temp Pulse Resp B/P Pulse Ox O2 Delivery O2 Flow Rate FiO2 01/17/17 07:38 98.2 82 18 107/70 97 01/16/17 14:12 Room Air 01/16/17 13:47 6.0 Intake and Output 01/16/17 01/16/17 01/17/17 15:00 23:00 07:00 Intake Total 950 ml 1010 ml 450 ml Output Total 10 ml 1450 ml Balance 940 ml -440 ml 450 ml Exam Constitutional: alert, oriented Psych: nl mood/affect Neck: non-tender, supple Respiratory: clear to auscultation, normal air movement Cardiovascular: regular rate and rhythm Gastrointestinal: non-tender, soft Musculoskeletal: nl extremities to inspection Neurological: nl mental status, nl speech Skin: other (surgical site on posterior neck with noted dressing in place) Results Result Diagram: 01/16/17 0552 01/16/17 0552 Medications Medications Current Medications Ondansetron HCl (Zofran Inj) 4 mg Q6H PRN IV NAUSEA AND/OR VOMITING; Start 07/24 at 06:30 Acetaminophen (Tylenol Tab) 650 mg Q6H PRN PO PAIN LEVEL 1-3 OR FEVER; Start at 06:30 Acetaminophen/ Hydrocodone Bitart ([place] (5/325)) 1 tab Q6H PRN PO MODERATE PAIN LEVEL 4-6 Last administered on 01/16/17t 16:38; Admin Dose 1 TAB; Start 07/24 at 06:30 Acetaminophen/ Hydrocodone Bitart ([place] (5/325)) 2 tab Q6H PRN PO SEVERE PAIN LEVEL 7-10; Start 01/15/17 at 06:30 Morphine Sulfate 2 mg 2 mg Q4H PRN IV SEVERE PAIN LEVEL 7-10 Last administered on 01/16/17 14:04; Admin Dose 2 MG; Start 01/15/17 at 06:30 Piperacillin Sod/ Tazobactam Sod 100 ml @ 200 mls/hr Q6 IVPB Last administered on 01/17/17 12:34; Admin Dose 200 MLS/HR; Start 01/15/17 at 06:30 Vancomycin HCl (Vancocin) 250 ml @ 125 mls/hr Q8H IVPB Last administered on 06:42; Admin Dose 125 MLS/HR; Start 01/15/17 at 23:00 Miscellaneous Information (*Rx Drug Level Order Reminder*) VANCOMYCIN TROUGH AT 2200 ONCE ONCE XX ; Start 01/17/17 at 22:00; Stop 01/17/17 at 22:01 PRIYANKA CAMEJO January 17, 2017 15:19
[2017-01-17] MEDS: SODIUM HYPOCHLORITE 1/40% 1L IRRIG IRR SCH (18:15)
--- NOTE | 2017-01-17 18:57 | CONS ---
Date/Time of Note Date/Time of Note DATE: 01/17/17 TIME: 18:55 Assessment/Plan Assessment/Plan Chief Complaint/Hosp Course SUBJECTIVE: No events overnight. Sleeping, no fevers MICROBIOLOGY: Wound culture growing Staphylococcus aureus, preliminary. ANTIMICROBIALS: The patient is on: 1. IV vancomycin. 2. Zosyn. PHYSICAL EXAMINATION: GENERAL: Well-developed, middle-aged man who is alert, in no distress. HEENT: Head atraumatic, normocephalic. Sclerae anicteric. Buccal mucosa dry. NECK: Supple, trachea midline. There is some tenderness in the back of the neck. CHEST: Rise symmetrical. Breath sounds diminished to bases. HEART: S1, S2. ABDOMEN: Soft, bowel sounds present. EXTREMITIES: Without cyanosis. ASSESSMENT: 1. Posterior neck abscess with cellulitis, s/p I&d. 2. Hypertension. 3. Systemic inflammatory response syndrome. PLAN: Remains stable. Continue antibiotics. Await for final cultures. DW staff Problems: Consultation Date/Type/Reason Admit Date/Time January 15, 2017 at 03:48 Initial Consult Date Type of Consultation: ID Exam/Review of Systems Vital Signs Vitals Vital Signs Date Time Temp Pulse Resp B/P Pulse Ox O2 Delivery O2 Flow Rate FiO2 01/17/17 07:38 98.2 82 18 107/70 97 01/16/17 14:12 Room Air 01/16/17 13:47 6.0 Intake and Output 01/16/17 01/16/17 01/17/17 15:00 23:00 07:00 Intake Total 950 ml 1010 ml 450 ml Output Total 10 ml 1450 ml Balance 940 ml -440 ml 450 ml Results Result Diagram: 01/16/17 0552 01/16/17 0552 Medications Medications Current Medications Ondansetron HCl (Zofran Inj) 4 mg Q6H PRN IV NAUSEA AND/OR VOMITING; Start 07/24 at 06:30 Acetaminophen (Tylenol Tab) 650 mg Q6H PRN PO PAIN LEVEL 1-3 OR FEVER; Start at 06:30 Acetaminophen/ Hydrocodone Bitart ([place] (5/325)) 1 tab Q6H PRN PO MODERATE PAIN LEVEL 4-6 Last administered on 01/16/17t 16:38; Admin Dose 1 TAB; Start 07/24 at 06:30 Acetaminophen/ Hydrocodone Bitart ([place] (5/325)) 2 tab Q6H PRN PO SEVERE PAIN LEVEL 7-10; Start 01/15/17 at 06:30 Morphine Sulfate 2 mg 2 mg Q4H PRN IV SEVERE PAIN LEVEL 7-10 Last administered on 01/16/17 14:04; Admin Dose 2 MG; Start 01/15/17 at 06:30 Piperacillin Sod/ Tazobactam Sod 100 ml @ 200 mls/hr Q6 IVPB Last administered on 01/17/17 18:44; Admin Dose 200 MLS/HR; Start 01/15/17 at 06:30 Vancomycin HCl (Vancocin) 250 ml @ 125 mls/hr Q8H IVPB Last administered on 15:29; Admin Dose 125 MLS/HR; Start 01/15/17 at 23:00 Miscellaneous Information (*Rx Drug Level Order Reminder*) VANCOMYCIN TROUGH AT 2200 ONCE ONCE XX ; Start 01/17/17 at 22:00; Stop 01/17/17 at 22:01 Sodium Hypochlorite (Dakin'S ([place]il[place] 1/40%)) 1 applic DAILY IRR Last administered on 01/17/17 18:15; Admin Dose 1 APPLIC; Start 01/17/17 at 18:00 JIMBO MEDRANO NP January 17, 2017 18:56
[2017-01-18] MEDS: PIPER-TAZO 3.375 GM IV (PMX) 100 ML IVPB SCH ×2 (05:27→11:46)
[2017-01-18 05:29] LABS: ADD SCAN DIFF NO
[2017-01-18 05:47] LABS: BASOPHILS % 0.7 % (0.0-2.0); EOSINOPHILS # 0.3 10^3/ul (0.0-0.5); EOSINOPHILS % 4.7 % (0.0-7.0); HEMATOCRIT 39.5 % (42.0-52.0); HEMOGLOBIN 13.2 g/dl (14.0-18.0); LYMPHOCYTES # 1.8 10^3/ul (0.8-2.9); LYMPHOCYTES % 30.6 % (15.0-51.0); MEAN CORPUSCULAR HEMOGLOBIN 29.7 pg (29.0-33.0); MEAN CORPUSCULAR HGB CONC 33.4 g/dl (32.0-37.0); MEAN CORPUSCULAR VOLUME 88.8 fl (82.0-101.0); MONOCYTE # 0.5 10^3/ul (0.3-0.9); MONOCYTES % 9.4 % (0.0-11.0); NEUTROPHIL # 3.1 10^3/ul (1.6-7.5); PLATELET COUNT 276 10^3/UL (140-415); RED BLOOD COUNT 4.45 10^6/ul (4.70-6.10); RED CELL DISTRIBUTION WIDTH 12.4 % (11.5-14.5); WHITE BLOOD COUNT 5.8 10^3/ul (4.8-10.8)
[2017-01-18 06:17] LABS: CREATININE 0.89 mg/dl (0.61-1.24)
[2017-01-18 06:18] LABS: CALCIUM 8.1 mg/dl (8.4-10.2)
[2017-01-18] MEDS: VANCOMYCIN 1 GM in NS 250 ML IVPB SCH (06:57)
[2017-01-18 07:29] VITALS: BP 125/81; RESP 16
[2017-01-18] MEDS: SODIUM HYPOCHLORITE 1/40% 1L IRRIG IRR SCH ×2 (08:34→11:46)
--- NOTE | 2017-01-18 12:15 | PN ---
Date/Time of Note Date/Time of Note DATE: 01/18/17 TIME: 12:14 Assessment/Plan VTE Prophylaxis VTE Prophylaxis Intervention: ambulation Lines/Catheters [facility] Saline Lock Assessment/Plan Chief Complaint/Hosp Course Assessment and plan 1. Sepsis from posterior neck abscess/cellulitis. Continue on antibiotics for now. ID consult following. Status post I&D. Continue wound care per surgeon recommendations. Of note culture did show staph aureus 2. Leukocytosis secondary to #1. Continue antibiotics 3. Hyponatremia. stable will monitor Disposition and plan: Continue antibiotics. Continue wound care per surgeon recommendations. Discharge when cleared by consultants. Plan for home health services upon discharge Discussed in appearance Dr. Nation Problems: Subjective 24 Hr Interval Summary Free Text/Dictation Comfortable at present. Denies any pain at this time Exam/Review of Systems Vital Signs Vitals Vital Signs Date Time Temp Pulse Resp B/P Pulse Ox O2 Delivery O2 Flow Rate FiO2 01/18/17 07:29 98.3 82 16 125/81 96 01/16/17 14:12 Room Air 01/16/17 13:47 6.0 Intake and Output 01/17/17 01/17/17 01/18/17 15:00 23:00 07:00 Intake Total 1020 ml 1350 ml 810 ml Output Total 1200 ml 1650 ml Balance 1020 ml 150 ml -840 ml Exam Constitutional: alert, oriented Psych: nl mood/affect Head: normocephalic Neck: other (Wound seen on posterior neck. Status post I&D.) Respiratory: clear to auscultation, normal air movement Cardiovascular: regular rate and rhythm Gastrointestinal: non-tender, soft Musculoskeletal: nl extremities to inspection, nl gait and stance Extremities: normal pulses Neurological: SPRINKLER INSTALLER II-XII intact, nl mental status, nl speech Results Result Diagram: 01/18/17 0507 01/18/17 0507 Results 24 hrs Laboratory Tests Test 01/17/17 22:38 01/18/17 05:07 Vancomycin Level Trough 13.3 White Blood Count 5.8 Red Blood Count 4.45 L Hemoglobin 13.2 L Hematocrit 39.5 L Mean Corpuscular Volume 88.8 Mean Corpuscular Hemoglobin 29.7 Mean Corpuscular Hemoglobin Concent 33.4 Red Cell Distribution Width 12.4 Platelet Count 276 Mean Platelet Volume 9.0 Neutrophils % 53.0 Lymphocytes % 30.6 Monocytes % 9.4 Eosinophils % 4.7 Basophils % 0.7 Nucleated Red Blood Cells % 0.0 Neutrophils # 3.1 Lymphocytes # 1.8 Monocytes # 0.5 Eosinophils # 0.3 Basophils # 0.0 Nucleated Red Blood Cells # 0.0 Sodium Level 140 Potassium Level 4.0 Chloride Level 107 Carbon Dioxide Level 23 Anion Gap 14 Blood Urea Nitrogen 15 Creatinine 0.89 Glucose Level 87 Calcium Level 8.1 L Medications Medications Current Medications Ondansetron HCl (Zofran Inj) 4 mg Q6H PRN IV NAUSEA AND/OR VOMITING; Start 07/24 at 06:30 Acetaminophen (Tylenol Tab) 650 mg Q6H PRN PO PAIN LEVEL 1-3 OR FEVER; Start at 06:30 Acetaminophen/ Hydrocodone Bitart ([place] (5/325)) 1 tab Q6H PRN PO MODERATE PAIN LEVEL 4-6 Last administered on 01/16/17 16:38; Admin Dose 1 TAB; Start 07/24 at 06:30 Acetaminophen/ Hydrocodone Bitart ([place] (5/325)) 2 tab Q6H PRN PO SEVERE PAIN LEVEL 7-10; Start 01/15/17 at 06:30 Morphine Sulfate 2 mg 2 mg Q4H PRN IV SEVERE PAIN LEVEL 7-10 Last administered on 01/16/17 14:04; Admin Dose 2 MG; Start 01/15/17 at 06:30 Piperacillin Sod/ Tazobactam Sod 100 ml @ 200 mls/hr Q6 IVPB Last administered on 01/18/17 11:46; Admin Dose 200 MLS/HR; Start 01/15/17 at 06:30 Vancomycin HCl (Vancocin) 250 ml @ 125 mls/hr Q8H IVPB Last administered on 06:57; Admin Dose 125 MLS/HR; Start 01/15/17 at 23:00 Sodium Hypochlorite (Dakin'S (Dilute 1/40%)) 1 applic DAILY IRR Last administered on 01/18/17 11:46; Admin Dose 1 APPLIC; Start 01/17/17 at 18:00 PRIYANKA CAMEJO January 18, 2017 12:15
[2017-01-18] MEDS: CLINDAMYCIN 600 MG/D5W (PMX) 50 ML IVPB SCH ×2 (15:00→23:56)
--- NOTE | 2017-01-18 15:10 | CONS ---
Date/Time of Note Date/Time of Note DATE: 01/18/17 TIME: 15:09 Assessment/Plan Assessment/Plan Chief Complaint/Hosp Course SUBJECTIVE: No events overnight. No fevers MICROBIOLOGY: Wound culture growing MICHELLE ANTIMICROBIALS: The patient is on: 1. IV vancomycin. 2. Zosyn. PHYSICAL EXAMINATION: GENERAL: Well-developed, middle-aged man who is alert, in no distress. HEENT: Head atraumatic, normocephalic. Sclerae anicteric. Buccal mucosa dry. NECK: Supple, trachea midline. There is some tenderness in the back of the neck. CHEST: Rise symmetrical. Breath sounds diminished to bases. HEART: S1, S2. ABDOMEN: Soft, bowel sounds present. EXTREMITIES: Without cyanosis. ASSESSMENT: 1. Posterior neck abscess with cellulitis, s/p I&d. 2. Hypertension. 3. Systemic inflammatory response syndrome. PLAN: Remains stable. Will change antibiotics to Clindamycin, f/u surgical rec- s DW staff Problems: Consultation Date/Type/Reason Admit Date/Time January 15, 2017 at 03:48 Type of Consultation: ID Exam/Review of Systems Vital Signs Vitals Vital Signs Date Time Temp Pulse Resp B/P Pulse Ox O2 Delivery O2 Flow Rate FiO2 01/18/17 07:29 98.3 82 16 125/81 96 01/16/17 14:12 Room Air 01/16/17 13:47 6.0 Intake and Output 01/17/17 01/17/17 01/18/17 15:00 23:00 07:00 Intake Total 1020 ml 1350 ml 810 ml Output Total 1200 ml 1650 ml Balance 1020 ml 150 ml -840 ml Results Result Diagram: 01/18/17 0507 01/18/17 0507 Results 24 hrs Laboratory Tests Test 01/17/17 22:38 01/18/17 05:07 Vancomycin Level Trough 13.3 White Blood Count 5.8 Red Blood Count 4.45 L Hemoglobin 13.2 L Hematocrit 39.5 L Mean Corpuscular Volume 88.8 Mean Corpuscular Hemoglobin 29.7 Mean Corpuscular Hemoglobin Concent 33.4 Red Cell Distribution Width 12.4 Platelet Count 276 Mean Platelet Volume 9.0 Neutrophils % 53.0 Lymphocytes % 30.6 Monocytes % 9.4 Eosinophils % 4.7 Basophils % 0.7 Nucleated Red Blood Cells % 0.0 Neutrophils # 3.1 Lymphocytes # 1.8 Monocytes # 0.5 Eosinophils # 0.3 Basophils # 0.0 Nucleated Red Blood Cells # 0.0 Sodium Level 140 Potassium Level 4.0 Chloride Level 107 Carbon Dioxide Level 23 Anion Gap 14 Blood Urea Nitrogen 15 Creatinine 0.89 Glucose Level 87 Calcium Level 8.1 L Medications Medications Current Medications Ondansetron HCl (Zofran Inj) 4 mg Q6H PRN IV NAUSEA AND/OR VOMITING; Start 07/24 at 06:30 Acetaminophen (Tylenol Tab) 650 mg Q6H PRN PO PAIN LEVEL 1-3 OR FEVER; Start at 06:30 Acetaminophen/ Hydrocodone Bitart ([place] (5/325)) 1 tab Q6H PRN PO MODERATE PAIN LEVEL 4-6 Last administered on 01/16/17 16:38; Admin Dose 1 TAB; Start 07/24 at 06:30 Acetaminophen/ Hydrocodone Bitart ([place] (5/325)) 2 tab Q6H PRN PO SEVERE PAIN LEVEL 7-10; Start 01/15/17 at 06:30 Morphine Sulfate 2 mg 2 mg Q4H PRN IV SEVERE PAIN LEVEL 7-10 Last administered on 01/16/17 14:04; Admin Dose 2 MG; Start 01/15/17 at 06:30 Piperacillin Sod/ Tazobactam Sod 100 ml @ 200 mls/hr Q6 IVPB Last administered on 01/18/17 11:46; Admin Dose 200 MLS/HR; Start 01/15/17 at 06:30 Vancomycin HCl (Vancocin) 250 ml @ 125 mls/hr Q8H IVPB Last administered on 06:57; Admin Dose 125 MLS/HR; Start 01/15/17 at 23:00 Sodium Hypochlorite (Dakin'S (Dilute 1/40%)) 1 applic DAILY IRR Last administered on 01/18/17 11:46; Admin Dose 1 APPLIC; Start 01/17/17 at 18:00 JIMBO MEDRANO NP January 18, 2017 15:10
[2017-01-18 20:00] VITALS: BP 126/72; PULSE 74; RESP 18
[2017-01-19] MEDS: CLINDAMYCIN 600 MG/D5W (PMX) 50 ML IVPB SCH ×3 (05:13→18:56)
[2017-01-19 06:12] LABS: ADD SCAN DIFF NO
[2017-01-19 06:20] LABS: BASOPHIL # 0.1 10^3/ul (0.0-0.1); BASOPHILS % 0.7 % (0.0-2.0); EOSINOPHILS # 0.3 10^3/ul (0.0-0.5); EOSINOPHILS % 4.3 % (0.0-7.0); HEMATOCRIT 42.4 % (42.0-52.0); HEMOGLOBIN 14.4 g/dl (14.0-18.0); LYMPHOCYTES # 1.8 10^3/ul (0.8-2.9); MEAN CORPUSCULAR HEMOGLOBIN 29.8 pg (29.0-33.0); MEAN CORPUSCULAR VOLUME 87.6 fl (82.0-101.0); MEAN PLATELET VOLUME 8.9 fl (7.4-10.4); MONOCYTE # 0.6 10^3/ul (0.3-0.9); MONOCYTES % 9.4 % (0.0-11.0); NEUTROPHIL # 3.9 10^3/ul (1.6-7.5); NEUTROPHILS % 57.5 % (39.0-77.0); PLATELET COUNT 292 10^3/UL (140-415); RED BLOOD COUNT 4.84 10^6/ul (4.70-6.10); RED CELL DISTRIBUTION WIDTH 12.3 % (11.5-14.5); WHITE BLOOD COUNT 6.8 10^3/ul (4.8-10.8)
[2017-01-19 06:49] LABS: POTASSIUM 3.4 mmol/L (3.5-5.1)
[2017-01-19 06:51] LABS: CREATININE 0.85 mg/dl (0.61-1.24)
[2017-01-19 06:52] LABS: CALCIUM 8.3 mg/dl (8.4-10.2)
[2017-01-19 07:32] VITALS: BP 129/84; RESP 16
--- NOTE | 2017-01-19 11:13 | PN ---
Date/Time of Note Date/Time of Note DATE: 01/17/17 TIME: 11:10 Assessment/Plan Lines/Catheters IV Catheter Type (from [facility]): Saline Lock Gibbons in Place (from [facility]): No Assessment/Plan Chief Complaint/Hosp Course 1. Posterior neck/upper back cellulitis, wound and abscess s/p I&D&D 01/16 -Antibiotics -Warm compress -Local care -Nutritional optimization -Vit C -Off load 2. Generalized rash possible allergy to antibiotics. Improved 3. Anemia probably dilutional Monitor 4. Hypertension -Medication and diet optimization Thank you, Late entry 01/17 Problems: Subjective 24 Hr Interval Summary Minimal posterior neck pain. No fever nor chills. No chest pain or shortness of breath. No visual neurologic changes. No dysuria. No abdominal pain. No cough. No seizure. Rash improved Exam/Review of Systems Vital Signs Vitals Vital Signs Date Time Temp Pulse Resp B/P Pulse Ox O2 Delivery O2 Flow Rate FiO2 01/19/17 07:32 98.4 83 16 129/84 96 01/18/17 20:00 Room Air 01/16/17 13:47 6.0 Intake and Output 01/18/17 01/18/17 01/19/17 15:00 23:00 07:00 Intake Total 250 ml 1160 ml 940 ml Output Total 700 ml Balance 250 ml 460 ml 940 ml Exam Free Text/Dictation Constitutional: alert, oriented, No distress Psych: nl mood/affect, No anxiety, No confusion Head: atraumatic, normocephalic, No hematomas Eyes: EOMI, PERRL, nl conjunctiva, No icteric ENMT: mucosa pink and moist, nl external ears & nose, nl lips & teeth Neck: Posterior neck/upper back wound with packing, supple, No jvd, No non- tender (posterior neck) Respiratory: normal air movement, No congested cough, No labored breathing Cardiovascular: regular rate and rhythm, No edema Gastrointestinal: non-tender, soft, No rebound or guarding Musculoskeletal: nl extremities to inspection, nl gait and stance, No joint tenderness Extremities: No calf tenderness, No cyanosis Neurological: nl mental status, nl speech, nl strength Skin: Wound as above, No diaphoresis Lymph: nl lymph nodes Results Result Diagram: 01/19/17 0550 01/19/17 0550 PAI OLIVEIRA MD January 19, 2017 11:12
--- NOTE | 2017-01-19 11:13 | PN ---
Date/Time of Note Date/Time of Note DATE: 01/18/17 TIME: 11:13 Assessment/Plan Lines/Catheters IV Catheter Type (from [facility]): Saline Lock Gibbons in Place (from [facility]): No Assessment/Plan Chief Complaint/Hosp Course 1. Posterior neck/upper back cellulitis, wound and abscess s/p I&D&D 01/16 -Antibiotics -Warm compress -Local care -Nutritional optimization -Vit C -Off load 2. Generalized rash possible allergy to antibiotics. Improved 3. Anemia probably dilutional Monitor 4. Hypertension -Medication and diet optimization Thank you, Late entry 01/18 Problems: Subjective 24 Hr Interval Summary Minimal posterior neck pain. No fever nor chills. No chest pain or shortness of breath. No visual neurologic changes. No dysuria. No abdominal pain. No cough. No seizure. Rash improved Exam/Review of Systems Vital Signs Vitals Vital Signs Date Time Temp Pulse Resp B/P Pulse Ox O2 Delivery O2 Flow Rate FiO2 01/19/17 07:32 98.4 83 16 129/84 96 01/18/17 20:00 Room Air 01/16/17 13:47 6.0 Intake and Output 01/18/17 01/18/17 01/19/17 15:00 23:00 07:00 Intake Total 250 ml 1160 ml 940 ml Output Total 700 ml Balance 250 ml 460 ml 940 ml Exam Free Text/Dictation Constitutional: alert, oriented, No distress Psych: nl mood/affect, No anxiety, No confusion Head: atraumatic, normocephalic, No hematomas Eyes: EOMI, PERRL, nl conjunctiva, No icteric ENMT: mucosa pink and moist, nl external ears & nose, nl lips & teeth Neck: Posterior neck/upper back wound with packing, supple, No jvd, No non- tender (posterior neck) Respiratory: normal air movement, No congested cough, No labored breathing Cardiovascular: regular rate and rhythm, No edema Gastrointestinal: non-tender, soft, No rebound or guarding Musculoskeletal: nl extremities to inspection, nl gait and stance, No joint tenderness Extremities: No calf tenderness, No cyanosis Neurological: nl mental status, nl speech, nl strength Skin: Wound as above, No diaphoresis Lymph: nl lymph nodes Results Result Diagram: 01/19/17 0550 01/19/17 0550 PIA OLIVEIRA MD January 19, 2017 11:13
--- NOTE | 2017-01-19 11:14 | PN ---
Date/Time of Note Date/Time of Note DATE: 01/19/17 TIME: 11:13 Assessment/Plan Lines/Catheters IV Catheter Type (from [facility]): Saline Lock Gibbons in Place (from [facility]): No Assessment/Plan Chief Complaint/Hosp Course 1. Posterior neck/upper back cellulitis, wound and abscess s/p I&D&D 01/16 -Antibiotics -Warm compress -Local care -Nutritional optimization -Vit C -Off load -DC planning per primary team 2. Generalized rash possible allergy to antibiotics. Improved 3. Anemia probably dilutional Monitor 4. Hypertension -Medication and diet optimization Thank you, Problems: Subjective 24 Hr Interval Summary Minimal posterior neck pain. No fever nor chills. No chest pain or shortness of breath. No visual neurologic changes. No dysuria. No abdominal pain. No cough. No seizure. Rash improved Exam/Review of Systems Vital Signs Vitals Vital Signs Date Time Temp Pulse Resp B/P Pulse Ox O2 Delivery O2 Flow Rate FiO2 01/19/17 07:32 98.4 83 16 129/84 96 01/18/17 20:00 Room Air 01/16/17 13:47 6.0 Intake and Output 01/18/17 01/18/17 01/19/17 15:00 23:00 07:00 Intake Total 250 ml 1160 ml 940 ml Output Total 700 ml Balance 250 ml 460 ml 940 ml Exam Free Text/Dictation Constitutional: alert, oriented, No distress Psych: nl mood/affect, No anxiety, No confusion Head: atraumatic, normocephalic, No hematomas Eyes: EOMI, PERRL, nl conjunctiva, No icteric ENMT: mucosa pink and moist, nl external ears & nose, nl lips & teeth Neck: Posterior neck/upper back wound with packing, supple, No jvd, No non- tender (posterior neck) Respiratory: normal air movement, No congested cough, No labored breathing Cardiovascular: regular rate and rhythm, No edema Gastrointestinal: non-tender, soft, No rebound or guarding Musculoskeletal: nl extremities to inspection, nl gait and stance, No joint tenderness Extremities: No calf tenderness, No cyanosis Neurological: nl mental status, nl speech, nl strength Skin: Wound as above, No diaphoresis Lymph: nl lymph nodes Results Result Diagram: 01/19/17 0550 01/19/17 0550 PIA OLIVEIRA MD January 19, 2017 11:14
[2017-01-19] MEDS ORDERED: POTASSIUM CHLORIDE (SR) 20 MEQ TAB PO STA (11:25)
--- NOTE | 2017-01-19 11:32 | PN ---
Date/Time of Note Date/Time of Note DATE: 01/19/17 TIME: 11:30 Assessment/Plan VTE Prophylaxis VTE Prophylaxis Intervention: SCD's Lines/Catheters IV Catheter Type (from [facility]): Saline Lock Urinary Cath still in place: No Assessment/Plan Assessment/Plan 1. Sepsis from posterior neck abscess/cellulitis. Continue on antibiotics for now. ID consult following. Status post I&D. Continue wound care per surgeon recommendations. Of note culture did show staph aureus 2. Leukocytosis secondary to #1. Continue antibiotics 3. Hyponatremia. stable will monitor Disposition and plan: Continue antibiotics. switched to IV clindamycin, d/c plan to home with home helath and PO clindamycin on thursday or thursday Subjective 24 Hr Interval Summary Free Text/Dictation s/p wound cx grew staph aureus, BP stable, afebrile, WBCnormal Exam/Review of Systems Vital Signs Vitals Vital Signs Date Time Temp Pulse Resp B/P Pulse Ox O2 Delivery O2 Flow Rate FiO2 01/19/17 07:32 98.4 83 16 129/84 96 01/18/17 20:00 Room Air 01/16/17 13:47 6.0 Intake and Output 01/18/17 01/18/17 01/19/17 15:00 23:00 07:00 Intake Total 250 ml 1160 ml 940 ml Output Total 700 ml Balance 250 ml 460 ml 940 ml Exam Constitutional: alert, oriented Psych: nl mood/affect Head: normocephalic Neck: other (Wound seen on posterior neck. Status post I&D.) Respiratory: clear to auscultation, normal air movement Cardiovascular: regular rate and rhythm Gastrointestinal: non-tender, soft Musculoskeletal: nl extremities to inspection, nl gait and stance Extremities: normal pulses Neurological: LEAD SYSTEMS ARCHITECT II-XII intact, nl mental status, nl speech Results Result Diagram: 01/19/17 0550 01/19/17 0550 Results 24 hrs Laboratory Tests Test 01/19/17 05:50 White Blood Count 6.8 Red Blood Count 4.84 Hemoglobin 14.4 Hematocrit 42.4 Mean Corpuscular Volume 87.6 Mean Corpuscular Hemoglobin 29.8 Mean Corpuscular Hemoglobin Concent 34.0 Red Cell Distribution Width 12.3 Platelet Count 292 Mean Platelet Volume 8.9 Neutrophils % 57.5 Lymphocytes % 26.0 Monocytes % 9.4 Eosinophils % 4.3 Basophils % 0.7 Nucleated Red Blood Cells % 0.0 Neutrophils # 3.9 Lymphocytes # 1.8 Monocytes # 0.6 Eosinophils # 0.3 Basophils # 0.1 Nucleated Red Blood Cells # 0.0 Sodium Level 139 Potassium Level 3.4 L Chloride Level 105 Carbon Dioxide Level 23 Anion Gap 14 Blood Urea Nitrogen 14 Creatinine 0.85 Glucose Level 127 # Calcium Level 8.3 L Medications Medications Current Medications Ondansetron HCl (Zofran Inj) 4 mg Q6H PRN IV NAUSEA AND/OR VOMITING; Start 07/24 at 06:30 Acetaminophen (Tylenol Tab) 650 mg Q6H PRN PO PAIN LEVEL 1-3 OR FEVER; Start at 06:30 Acetaminophen/ Hydrocodone Bitart ([place] (5/325)) 1 tab Q6H PRN PO MODERATE PAIN LEVEL 4-6 Last administered on 01/16/17 16:38; Admin Dose 1 TAB; Start 07/24 at 06:30 Acetaminophen/ Hydrocodone Bitart ([place] (5/325)) 2 tab Q6H PRN PO SEVERE PAIN LEVEL 7-10; Start 01/15/17 at 06:30 Morphine Sulfate (morphine) 2 mg Q4H PRN IV SEVERE PAIN LEVEL 7-10 Last administered on 01/16/17 14:04; Admin Dose 2 MG; Start 01/15/17 at 06:30 Sodium Hypochlorite 1 applic 1 applic DAILY IRR Last administered on 01/18/17 11:46; Admin Dose 1 APPLIC; Start 01/17/17 at 18:00 Clindamycin HCl/ Dextrose (Cleocin 600 Mg/ D5W (Pmx)) 50 ml @ 50 mls/hr Q6 IVPB Last administered on 01/19/17 05:13; Admin Dose 50 MLS/HR; Start 01/18/17 at 18:00 STEVIE MORAN MD January 19, 2017 11:32
--- NOTE | 2017-01-19 13:09 | CONS ---
Date/Time of Note Date/Time of Note DATE: 01/19/17 TIME: 13:08 Assessment/Plan Assessment/Plan Chief Complaint/Hosp Course SUBJECTIVE: No events overnight. No fevers MICROBIOLOGY: Wound culture growing MICHELLE ANTIMICROBIALS: The patient is on Clindamycin PHYSICAL EXAMINATION: GENERAL: Well-developed, middle-aged man who is alert, in no distress. HEENT: Head atraumatic, normocephalic. Sclerae anicteric. Buccal mucosa dry. NECK: Supple, trachea midline. There is some tenderness in the back of the neck. CHEST: Rise symmetrical. Breath sounds diminished to bases. HEART: S1, S2. ABDOMEN: Soft, bowel sounds present. EXTREMITIES: Without cyanosis. ASSESSMENT: 1. Posterior neck abscess with cellulitis, s/p I&d===> pt has large wound with packing. 2. Hypertension. 3. Systemic inflammatory response syndrome. PLAN: Remains stable. Continue abx and probiotics, wound care per surgical rec -s DW pt Problems: Consultation Date/Type/Reason Admit Date/Time January 15, 2017 at 03:48 Type of Consultation: ID Exam/Review of Systems Vital Signs Vitals Vital Signs Date Time Temp Pulse Resp B/P Pulse Ox O2 Delivery O2 Flow Rate FiO2 01/19/17 07:32 98.4 83 16 129/84 96 01/18/17 20:00 Room Air 01/16/17 13:47 6.0 Intake and Output 01/18/17 01/18/17 01/19/17 15:00 23:00 07:00 Intake Total 250 ml 1160 ml 940 ml Output Total 700 ml Balance 250 ml 460 ml 940 ml Results Result Diagram: 01/19/17 0550 01/19/17 0550 Results 24 hrs Laboratory Tests Test 01/19/17 05:50 White Blood Count 6.8 Red Blood Count 4.84 Hemoglobin 14.4 Hematocrit 42.4 Mean Corpuscular Volume 87.6 Mean Corpuscular Hemoglobin 29.8 Mean Corpuscular Hemoglobin Concent 34.0 Red Cell Distribution Width 12.3 Platelet Count 292 Mean Platelet Volume 8.9 Neutrophils % 57.5 Lymphocytes % 26.0 Monocytes % 9.4 Eosinophils % 4.3 Basophils % 0.7 Nucleated Red Blood Cells % 0.0 Neutrophils # 3.9 Lymphocytes # 1.8 Monocytes # 0.6 Eosinophils # 0.3 Basophils # 0.1 Nucleated Red Blood Cells # 0.0 Sodium Level 139 Potassium Level 3.4 L Chloride Level 105 Carbon Dioxide Level 23 Anion Gap 14 Blood Urea Nitrogen 14 Creatinine 0.85 Glucose Level 127 # Calcium Level 8.3 L Medications Medications Current Medications Ondansetron HCl (Zofran Inj) 4 mg Q6H PRN IV NAUSEA AND/OR VOMITING; Start 07/24 at 06:30 Acetaminophen (Tylenol Tab) 650 mg Q6H PRN PO PAIN LEVEL 1-3 OR FEVER; Start at 06:30 Acetaminophen/ Hydrocodone Bitart ([place] (5/325)) 1 tab Q6H PRN PO MODERATE PAIN LEVEL 4-6 Last administered on 01/16/17 16:38; Admin Dose 1 TAB; Start 07/24 at 06:30 Acetaminophen/ Hydrocodone Bitart ([place] (5/325)) 2 tab Q6H PRN PO SEVERE PAIN LEVEL 7-10; Start 01/15/17 at 06:30 Morphine Sulfate (morphine) 2 mg Q4H PRN IV SEVERE PAIN LEVEL 7-10 Last administered on 01/16/17 14:04; Admin Dose 2 MG; Start 01/15/17 at 06:30 Sodium Hypochlorite 1 applic 1 applic DAILY IRR Last administered on 01/18/17 11:46; Admin Dose 1 APPLIC; Start 01/17/17 at 18:00 Clindamycin HCl/ Dextrose (Cleocin 600 Mg/ D5W (Pmx)) 50 ml @ 50 mls/hr Q6 IVPB Last administered on 01/19/17 05:13; Admin Dose 50 MLS/HR; Start 01/18/17 at 18:00 JIMBO MEDRANO NP January 19, 2017 13:09
[2017-01-19] MEDS ORDERED: LORAZEPAM 2 MG INJ IV ONE (15:00)
[2017-01-19] MEDS ORDERED: morphine 2 MG INJ IV PRN (15:00)
[2017-01-19] MEDS: SODIUM HYPOCHLORITE 1/40% 1L IRRIG IRR SCH (15:15)
[2017-01-19 19:19] VITALS: BP 139/92; RESP 20
[2017-01-19] MEDS: L ACIDOPHIL/B LACTIS/B LONGUM CAPSULE PO SCH (22:08)
[2017-01-20] MEDS: CLINDAMYCIN 600 MG/D5W (PMX) 50 ML IVPB SCH ×5 (00:57→23:45)
[2017-01-20 06:10] LABS: ADD SCAN DIFF NO; BASOPHIL # 0.1 10^3/ul (0.0-0.1); BASOPHILS % 1.1 % (0.0-2.0); EOSINOPHILS # 0.3 10^3/ul (0.0-0.5); EOSINOPHILS % 4.3 % (0.0-7.0); HEMATOCRIT 42.7 % (42.0-52.0); HEMOGLOBIN 14.6 g/dl (14.0-18.0); LYMPHOCYTES # 2.1 10^3/ul (0.8-2.9); LYMPHOCYTES % 27.9 % (15.0-51.0); MEAN CORPUSCULAR HEMOGLOBIN 29.7 pg (29.0-33.0); MEAN CORPUSCULAR HGB CONC 34.2 g/dl (32.0-37.0); MEAN CORPUSCULAR VOLUME 86.8 fl (82.0-101.0); MONOCYTE # 0.6 10^3/ul (0.3-0.9); MONOCYTES % 7.9 % (0.0-11.0); NEUTROPHILS % 54.5 % (39.0-77.0); PLATELET COUNT 324 10^3/UL (140-415); RED BLOOD COUNT 4.92 10^6/ul (4.70-6.10); RED CELL DISTRIBUTION WIDTH 12.2 % (11.5-14.5); WHITE BLOOD COUNT 7.4 10^3/ul (4.8-10.8)
[2017-01-20 06:24] LABS: CREATININE 0.8 mg/dl (0.61-1.24)
[2017-01-20 06:25] LABS: CALCIUM 8.3 mg/dl (8.4-10.2)
[2017-01-20 07:25] VITALS: BP 130/89; RESP 20
[2017-01-20] MEDS: L ACIDOPHIL/B LACTIS/B LONGUM CAPSULE PO SCH ×2 (09:48→20:24)
[2017-01-20] MEDS: SODIUM HYPOCHLORITE 1/40% 1L IRRIG IRR SCH (09:48)
--- NOTE | 2017-01-20 12:39 | CONS ---
Date/Time of Note Date/Time of Note DATE: 01/20/17 TIME: 12:38 Assessment/Plan Assessment/Plan Chief Complaint/Hosp Course SUBJECTIVE: No events overnight. No fevers. Alert, feels good MICROBIOLOGY: Wound culture growing MICHELLE ANTIMICROBIALS: The patient is on Clindamycin PHYSICAL EXAMINATION: GENERAL: Well-developed, middle-aged man who is alert, in no distress. HEENT: Head atraumatic, normocephalic. Sclerae anicteric. Buccal mucosa dry. NECK: Supple, trachea midline. There is some tenderness in the back of the neck. CHEST: Rise symmetrical. Breath sounds diminished to bases. HEART: S1, S2. ABDOMEN: Soft, bowel sounds present. EXTREMITIES: Without cyanosis. ASSESSMENT: 1. Posterior neck folliculitis with abscess, s/p I&d===> pt has large wound with packing. 2. Hypertension. 3. Systemic inflammatory response syndrome. PLAN: Remains stable. Continue abx and probiotics, wound care per surgical rec -s DW pt Problems: Consultation Date/Type/Reason Admit Date/Time January 15, 2017 at 03:48 Type of Consultation: ID Exam/Review of Systems Vital Signs Vitals Vital Signs Date Time Temp Pulse Resp B/P Pulse Ox O2 Delivery O2 Flow Rate FiO2 01/20/17 07:25 98.8 81 20 130/89 98 01/18/17 20:00 Room Air 01/16/17 13:47 6.0 Intake and Output 01/19/17 01/19/17 01/20/17 15:00 23:00 07:00 Intake Total 100 ml 850 ml Balance 100 ml 850 ml Results Result Diagram: 01/20/17 0517 01/20/17 0517 Results 24 hrs Laboratory Tests Test 01/20/17 05:17 White Blood Count 7.4 Red Blood Count 4.92 Hemoglobin 14.6 Hematocrit 42.7 Mean Corpuscular Volume 86.8 Mean Corpuscular Hemoglobin 29.7 Mean Corpuscular Hemoglobin Concent 34.2 Red Cell Distribution Width 12.2 Platelet Count 324 Mean Platelet Volume 9.0 Neutrophils % 54.5 Lymphocytes % 27.9 Monocytes % 7.9 Eosinophils % 4.3 Basophils % 1.1 Nucleated Red Blood Cells % 0.0 Neutrophils # 4.0 Lymphocytes # 2.1 Monocytes # 0.6 Eosinophils # 0.3 Basophils # 0.1 Nucleated Red Blood Cells # 0.0 Sodium Level 139 Potassium Level 4.0 Chloride Level 105 Carbon Dioxide Level 24 Anion Gap 14 Blood Urea Nitrogen 15 Creatinine 0.80 Glucose Level 97 Calcium Level 8.3 L Medications Medications Current Medications Ondansetron HCl (Zofran Inj) 4 mg Q6H PRN IV NAUSEA AND/OR VOMITING; Start 07/24 at 06:30 Acetaminophen (Tylenol Tab) 650 mg Q6H PRN PO PAIN LEVEL 1-3 OR FEVER; Start at 06:30 Acetaminophen/ Hydrocodone Bitart ([place] (5/325)) 1 tab Q6H PRN PO MODERATE PAIN LEVEL 4-6 Last administered on 01/16/17 16:38; Admin Dose 1 TAB; Start 07/24 at 06:30 Acetaminophen/ Hydrocodone Bitart ([place] (5/325)) 2 tab Q6H PRN PO SEVERE PAIN LEVEL 7-10; Start 01/15/17 at 06:30 Morphine Sulfate (morphine) 2 mg Q4H PRN IV SEVERE PAIN LEVEL 7-10 Last administered on 01/16/17 14:04; Admin Dose 2 MG; Start 01/15/17 at 06:30 Sodium Hypochlorite 1 applic 1 applic DAILY IRR Last administered on 01/20/17 09:48; Admin Dose 1 APPLIC; Start 01/17/17 at 18:00 Clindamycin HCl/ Dextrose (Cleocin 600 Mg/ D5W (Pmx)) 50 ml @ 50 mls/hr Q6 IVPB Last administered on 01/20/17 11:59; Admin Dose 50 MLS/HR; Start 01/18/17 at 18:00 Lactobacillus Acidophilus (Florajen3 Capsule) 1 each BID PO Last administered on 01/20/17 09:48; Admin Dose 1 EACH; Start 01/19/17 at 21:00 JIMBO MEDRANO NP January 20, 2017 12:39
--- NOTE | 2017-01-20 13:35 | PN ---
Date/Time of Note Date/Time of Note DATE: 01/20/17 TIME: 13:34 Assessment/Plan Lines/Catheters IV Catheter Type (from Nrs): Saline Lock Gibbons in Place (from Nrs): No Assessment/Plan Chief Complaint/Hosp Course 1. Posterior neck/upper back cellulitis, wound and abscess s/p I&D&D 01/16 -Antibiotics -Warm compress -Local care -Nutritional optimization -Vit C -Off load -DC planning per primary team 2. Generalized rash possible allergy to antibiotics. Improved 3. Anemia probably dilutional Monitor 4. Hypertension -Medication and diet optimization Thank you, Problems: Subjective 24 Hr Interval Summary Minimal posterior neck pain. No fever nor chills. No chest pain or shortness of breath. No visual neurologic changes. No dysuria. No abdominal pain. No cough. No seizure. Rash improved Exam/Review of Systems Vital Signs Vitals Vital Signs Date Time Temp Pulse Resp B/P Pulse Ox O2 Delivery O2 Flow Rate FiO2 01/20/17 07:25 98.8 81 20 130/89 98 01/18/17 20:00 Room Air 01/16/17 13:47 6.0 Intake and Output 01/19/17 01/19/17 01/20/17 15:00 23:00 07:00 Intake Total 100 ml 850 ml Balance 100 ml 850 ml Exam Free Text/Dictation Constitutional: alert, oriented, No distress Psych: nl mood/affect, No anxiety, No confusion Head: atraumatic, normocephalic, No hematomas Eyes: EOMI, PERRL, nl conjunctiva, No icteric ENMT: mucosa pink and moist, nl external ears & nose, nl lips & teeth Neck: Posterior neck/upper back wound with packing, supple, No jvd, No non- tender (posterior neck) Respiratory: normal air movement, No congested cough, No labored breathing Cardiovascular: regular rate and rhythm, No edema Gastrointestinal: non-tender, soft, No rebound or guarding Musculoskeletal: nl extremities to inspection, nl gait and stance, No joint tenderness Extremities: No calf tenderness, No cyanosis Neurological: nl mental status, nl speech, nl strength Skin: Wound as above, No diaphoresis Lymph: nl lymph nodes Results Result Diagram: 01/20/17 0517 01/20/17 0517 PIA OLIVEIRA MD January 20, 2017 13:35
--- NOTE | 2017-01-20 16:08 | PN ---
Date/Time of Note Date/Time of Note DATE: 01/20/17 TIME: 16:07 Assessment/Plan VTE Prophylaxis VTE Prophylaxis Intervention: SCD's Lines/Catheters IV [facility]from [facility] Saline Lock Urinary Cath still in place: No Assessment/Plan Assessment/Plan 1. Sepsis from posterior neck abscess/cellulitis. Continue on antibiotics for now. ID consult following. Status post I&D. Continue wound care per surgeon recommendations. Of note culture did show staph aureus 2. Leukocytosis secondary to #1. Continue antibiotics 3. Hyponatremia. stable will monitor Disposition and plan: Continue antibiotics. switched to IV clindamycin, d/c plan to home with home helath and PO clindamycin tomorrow Subjective 24 Hr Interval Summary Free Text/Dictation doing ok, BP stable , getting IV abx Exam/Review of Systems Vital Signs Vitals Vital Signs Date Time Temp Pulse Resp B/P Pulse Ox O2 Delivery O2 Flow Rate FiO2 01/20/17 07:25 98.8 81 20 130/89 98 01/18/17 20:00 Room Air 01/16/17 13:47 6.0 Intake and Output 01/19/17 01/19/17 01/20/17 15:00 23:00 07:00 Intake Total 100 ml 850 ml Balance 100 ml 850 ml Exam Constitutional: alert, oriented Psych: nl mood/affect Head: normocephalic Neck: other (Wound seen on posterior neck. Status post I&D.) Respiratory: clear to auscultation, normal air movement Cardiovascular: regular rate and rhythm Gastrointestinal: non-tender, soft Musculoskeletal: nl extremities to inspection, nl gait and stance Extremities: normal pulses Neurological: FORENSIC SPECIALIST II-XII intact, nl mental status, nl speech Results Result Diagram: 01/20/1717 01/20/1717 Results 24 hrs Laboratory Tests Test 01/20/17 05:17 White Blood Count 7.4 Red Blood Count 4.92 Hemoglobin 14.6 Hematocrit 42.7 Mean Corpuscular Volume 86.8 Mean Corpuscular Hemoglobin 29.7 Mean Corpuscular Hemoglobin Concent 34.2 Red Cell Distribution Width 12.2 Platelet Count 324 Mean Platelet Volume 9.0 Neutrophils % 54.5 Lymphocytes % 27.9 Monocytes % 7.9 Eosinophils % 4.3 Basophils % 1.1 Nucleated Red Blood Cells % 0.0 Neutrophils # 4.0 Lymphocytes # 2.1 Monocytes # 0.6 Eosinophils # 0.3 Basophils # 0.1 Nucleated Red Blood Cells # 0.0 Sodium Level 139 Potassium Level 4.0 Chloride Level 105 Carbon Dioxide Level 24 Anion Gap 14 Blood Urea Nitrogen 15 Creatinine 0.80 Glucose Level 97 Calcium Level 8.3 L Medications Medications Current Medications Ondansetron HCl (Zofran Inj) 4 mg Q6H PRN IV NAUSEA AND/OR VOMITING; Start 07/24 at 06:30 Acetaminophen (Tylenol Tab) 650 mg Q6H PRN PO PAIN LEVEL 1-3 OR FEVER; Start at 06:30 Acetaminophen/ Hydrocodone Bitart ([place] (5/325)) 1 tab Q6H PRN PO MODERATE PAIN LEVEL 4-6 Last administered on 01/16/17 16:38; Admin Dose 1 TAB; Start 07/24 at 06:30 Acetaminophen/ Hydrocodone Bitart ([place] (5/325)) 2 tab Q6H PRN PO SEVERE PAIN LEVEL 7-10; Start 01/15/17 at 06:30 Morphine Sulfate (morphine) 2 mg Q4H PRN IV SEVERE PAIN LEVEL 7-10 Last administered on 01/16/17 14:04; Admin Dose 2 MG; Start 01/15/17 at 06:30 Sodium Hypochlorite 1 applic 1 applic DAILY IRR Last administered on 01/20/17 09:48; Admin Dose 1 APPLIC; Start 01/17/17 at 18:00 Clindamycin HCl/ Dextrose (Cleocin 600 Mg/ D5W (Pmx)) 50 ml @ 50 mls/hr Q6 IVPB Last administered on 01/20/17 11:59; Admin Dose 50 MLS/HR; Start 01/18/17 at 18:00 Lactobacillus Acidophilus (Florajen3 Capsule) 1 each BID PO Last administered on 01/20/17 09:48; Admin Dose 1 EACH; Start 01/19/17 at 21:00 STEVIE MORAN MD January 20, 2017 16:08
[2017-01-20 19:57] VITALS: BP 126/76; RESP 16
[2017-01-21] MEDS: CLINDAMYCIN 600 MG/D5W (PMX) 50 ML IVPB SCH ×2 (05:30→12:03)
[2017-01-21 06:17] LABS: ADD SCAN DIFF NO
[2017-01-21 06:26] LABS: ABNORMAL IP MESSAGE 1; BASOPHIL # 0.1 10^3/ul (0.0-0.1); EOSINOPHILS # 0.5 10^3/ul (0.0-0.5); EOSINOPHILS % 4.6 % (0.0-7.0); HEMATOCRIT 42.7 % (42.0-52.0); HEMOGLOBIN 14.3 g/dl (14.0-18.0); LYMPHOCYTES # 2.6 10^3/ul (0.8-2.9); LYMPHOCYTES % 26.6 % (15.0-51.0); MEAN CORPUSCULAR HEMOGLOBIN 29.3 pg (29.0-33.0); MEAN CORPUSCULAR HGB CONC 33.5 g/dl (32.0-37.0); MEAN CORPUSCULAR VOLUME 87.5 fl (82.0-101.0); MONOCYTE # 0.6 10^3/ul (0.3-0.9); MONOCYTES % 6.2 % (0.0-11.0); NEUTROPHIL # 5.4 10^3/ul (1.6-7.5); NEUTROPHILS % 55.1 % (39.0-77.0); PLATELET COUNT 307 10^3/UL (140-415); RED BLOOD COUNT 4.88 10^6/ul (4.70-6.10); RED CELL DISTRIBUTION WIDTH 12.5 % (11.5-14.5); WHITE BLOOD COUNT 9.7 10^3/ul (4.8-10.8)
[2017-01-21 06:49] LABS: CALCIUM 8.6 mg/dl (8.4-10.2); CREATININE 0.9 mg/dl (0.61-1.24); POTASSIUM 4.5 mmol/L (3.5-5.1)
[2017-01-21 07:40] VITALS: BP 134/81; RESP 16
[2017-01-21] MEDS: SODIUM HYPOCHLORITE 1/40% 1L IRRIG IRR SCH (09:29)
[2017-01-21] MEDS: L ACIDOPHIL/B LACTIS/B LONGUM CAPSULE PO SCH (09:29)
--- NOTE | 2017-01-21 12:00 | PDOCDIS ---
Discharge Instructions CONDITION Patient Condition: Good HOME CARE INSTRUCTIONS: Special Diet: REGULAR ACTIVITY: Activity Restrictions: Slowly Increase Activity Rest between Activity Avoid heavy lifting Avoid Heavy Housework FOLLOW UP/APPOINTMENTS Appointments follow up with his own PMD through HMO insurance in 1-2 weeks. Follow up by Home health for wound care STEVIE MORAN MD January 21, 2017 12:00
[2017-01-21] MEDS ORDERED: IBUP400T22 PO (12:03)
[2017-01-21] MEDS ORDERED: FAMO-18 PO (12:03)
[2017-01-21] MEDS ORDERED: CLIN-73 PO (12:03)
--- NOTE | 2017-01-21 14:06 | CONS ---
Date/Time of Note Date/Time of Note DATE: 01/21/17 TIME: 14:06 Assessment/Plan Assessment/Plan Chief Complaint/Hosp Course SUBJECTIVE: No events overnight. No fevers. Alert, feels good MICROBIOLOGY: Wound culture growing MICHELLE ANTIMICROBIALS: The patient is on Clindamycin PHYSICAL EXAMINATION: GENERAL: Well-developed, middle-aged man who is alert, in no distress. HEENT: Head atraumatic, normocephalic. Sclerae anicteric. Buccal mucosa dry. NECK: Supple, trachea midline. There is some tenderness in the back of the neck. CHEST: Rise symmetrical. Breath sounds diminished to bases. HEART: S1, S2. ABDOMEN: Soft, bowel sounds present. EXTREMITIES: Without cyanosis. ASSESSMENT: 1. Posterior neck folliculitis with abscess, s/p I&d===> pt has large wound with packing. 2. Hypertension. 3. Systemic inflammatory response syndrome. PLAN: Remains stable. Continue abx and probiotics, wound care per surgical rec -s, anticipate dc on oral Clindamycin to complete 2 weeks abx DW pt Problems: Consultation Date/Type/Reason Admit Date/Time January 15, 2017 at 03:48 Type of Consultation: ID Exam/Review of Systems Vital Signs Vitals Vital Signs Date Time Temp Pulse Resp B/P Pulse Ox O2 Delivery O2 Flow Rate FiO2 01/21/17 07:40 97.7 82 16 134/81 97 01/18/17 20:00 Room Air Intake and Output 01/20/17 01/20/17 01/21/17 15:00 23:00 07:00 Intake Total 100 ml 1730 ml 930 ml Output Total 2400 ml 1250 ml Balance 100 ml -670 ml -320 ml Results Result Diagram: 01/21/17 0550 01/21/17 0550 Results 24 hrs Laboratory Tests Test 01/21/17 05:50 White Blood Count 9.7 # Red Blood Count 4.88 Hemoglobin 14.3 Hematocrit 42.7 Mean Corpuscular Volume 87.5 Mean Corpuscular Hemoglobin 29.3 Mean Corpuscular Hemoglobin Concent 33.5 Red Cell Distribution Width 12.5 Platelet Count 307 Mean Platelet Volume 9.0 Neutrophils % 55.1 Lymphocytes % 26.6 Monocytes % 6.2 Eosinophils % 4.6 Basophils % 1.0 Nucleated Red Blood Cells % 0.0 Neutrophils # 5.4 Lymphocytes # 2.6 Monocytes # 0.6 Eosinophils # 0.5 Basophils # 0.1 Nucleated Red Blood Cells # 0.0 Sodium Level 138 Potassium Level 4.5 Chloride Level 107 Carbon Dioxide Level 26 Anion Gap 10 Blood Urea Nitrogen 16 Creatinine 0.90 Glucose Level 100 Calcium Level 8.6 Medications Medications Current Medications Ondansetron HCl (Zofran Inj) 4 mg Q6H PRN IV NAUSEA AND/OR VOMITING; Start 07/24 at 06:30 Acetaminophen (Tylenol Tab) 650 mg Q6H PRN PO PAIN LEVEL 1-3 OR FEVER; Start at 06:30 Acetaminophen/ Hydrocodone Bitart ([place] (5/325)) 1 tab Q6H PRN PO MODERATE PAIN LEVEL 4-6 Last administered on 01/16/17 16:38; Admin Dose 1 TAB; Start 07/24 at 06:30 Acetaminophen/ Hydrocodone Bitart ([place] (5/325)) 2 tab Q6H PRN PO SEVERE PAIN LEVEL 7-10; Start 01/15/17 at 06:30 Morphine Sulfate (morphine) 2 mg Q4H PRN IV SEVERE PAIN LEVEL 7-10 Last administered on 01/16/17 14:04; Admin Dose 2 MG; Start 01/15/17 at 06:30 Sodium Hypochlorite 1 applic 1 applic DAILY IRR Last administered on 01/21/17 09:29; Admin Dose 1 APPLIC; Start 01/17/17 at 18:00 Clindamycin HCl/ Dextrose (Cleocin 600 Mg/ D5W (Pmx)) 50 ml @ 50 mls/hr Q6 IVPB Last administered on 01/21/17 12:03; Admin Dose 50 MLS/HR; Start 01/18/17 at 18:00 Lactobacillus Acidophilus (Florajen3 Capsule) 1 each BID PO Last administered on 01/21/17 09:29; Admin Dose 1 EACH; Start 01/19/17 at 21:00 JIMBO MEDRANO NP January 21, 2017 14:06
== END 2017-01-21 15:00 | disposition home health service (06) | DRG 854 ==
LOC: E/R 23:57 → MS2 01-15 03:48
PROVIDERS: ADMIT Internal Medicine; ATTEND Internal Medicine
PROC: 0JB50ZZ Excision of Left Neck Subcutaneous Tissue and Fascia, Open Approach (ICD-10-PCS; principal; 2017-01-16 11:00)
DX: A41.9 Sepsis, unspecified organism (principal); L03.221 Cellulitis of neck; E87.1 Hypo-osmolality and hyponatremia; I10 Essential (primary) hypertension; B95.61 Methicillin susceptible Staphylococcus aureus infection as the cause of diseases classified elsewhere; D64.9 Anemia, unspecified; L27.0 Generalized skin eruption due to drugs and medicaments taken internally; T36.8X5A Adverse effect of other systemic antibiotics, initial encounter; Y92.230 Patient room in hospital as the place of occurrence of the external cause
CPT/HCPCS: 36415; 70491; 80048; 80053; 80202; 82565; 83605; 84520; 85025; 85610; 85730; 87040; 87070; 88305; 96365; 96366; 96367; 96375; J1100; J1200; J2001; J2250; J2270; J2405; J2543; J3010; J3370; J7030; Q9967

== ENCOUNTER 2017-07-03 11:41 | Emergency (ER) | payer MEDICAID, OTHER ==
[~2017-07-03] VITALS: Wt 74.5 kg
[~2017-07-03 11:41] MED LIST: CLIN-73 PO; FAMO-96 PO; IBUP400T22 PO
[2017-07-03] MEDS ORDERED: FLUORESCEIN STRIP RIGHT EYE ONE (12:30)
[2017-07-03] MEDS ORDERED: TETRACAINE 0.5% 4 ML OPH RIGHT EYE ONE (12:30)
[2017-07-03] MEDS ORDERED: OFLO5DRO46 RIGHT EYE (12:53)
--- NOTE | 2017-07-03 13:09 | ERD ---
ER Documentation Chief Complaint Chief Complaint fb in r. ear HPI 51-year-old male complaining of pain to right eye. Patient states he was helping a friend clean backyard yesterday and feels that something may have gotten stuck in his eye. He has tried cleaning out his eye with water at home. Has continued irritation and light sensitivity. Wears glasses but no contacts. Denies any visual disturbances. Denies any headaches. ROS All systems reviewed and are negative except as per history of present illness. Medications Home Meds Active Scripts Ofloxacin* (Ocuflox*) 0.3%-5 Ml Ophth Drops, 1 DROP RIGHT EYE QID, #1 BOTTLE Prov:BRIELLE DUKES PA-C 07/03/17 Ibuprofen* (Ibuprofen*) 400 Mg Tablet, 400 MG PO QID Y for Pain, fever , #30 TAB Prov:STEVIE MORAN MD 01/21/17 Famotidine* (Pepcid*) 20 Mg Tablet, 20 MG PO DAILY, #30 TAB Prov:STEVIE MORAN MD 01/21/17 Clindamycin Hcl* (Clindamycin Hcl*) 300 Mg Capsule, 300 MG PO Q6 for neck abscess , #28 CAP Prov:STEVIE MORAN MD 01/21/17 Allergies Allergies: Coded Allergies: No Known Drug Allergies (Verified Allergy, Unknown, 01/15/17) PMhx/Soc History of Surgery: No Anesthesia Reaction: No Hx Neurological Disorder: No Hx Respiratory Disorders: Yes (BRONCHITIS) Hx Cardiac Disorders: Yes (HTN) Hx Psychiatric Problems: No Hx Miscellaneous Medical Probl: No Hx Alcohol Use: Yes (SOCIAL USE) Hx Substance Use: No Hx Tobacco Use: No Smoking Status: Never smoker Physical Exam Vitals Vital Signs Date Time Temp Pulse Resp B/P Pulse Ox O2 Delivery O2 Flow Rate FiO2 07/03/17 11:50 98.0 101 20 151/93 98 Physical Exam GENERAL: The patient is well-appearing, well-nourished, in no acute distress HEENT: Injection of the right sclera. Small corneal abrasion seen. No foreign body appreciated. NECK: C-spine is soft and supple. There is no meningismus. There is no cervical lymphadenopathy. CHEST: Clear to auscultation bilaterally. There are no rales, wheezes or rhonchi. HEART: Regular rate and rhythm. No murmurs, clicks, rubs or gallops. No S3 or S4. Results 24 hrs Current Medications Medications (Trade) Dose Ordered Sig/Rohan Route PRN Reason Start Time Stop Time Status Last Admin Dose Admin Fluorescein Sodium (Zhkqt-Z-Baszk) 1 strip ONCE ONCE RIGHT EYE 07/03/17 12:30 07/03/17 12:32 DC Tetracaine HCl (Tetracaine 0.5% Steri-Unit Angela) 1 drop ONCE ONCE RIGHT EYE 07/03/17 12:30 07/03/17 12:32 DC Procedures/MDM ER course: Fluorescein stain with tetracaine applied to right eye. Under UV light sclerae was visualized. No foreign body seen. Small circular site of uptake. No corneal lacerations or globe ruptures. MDM: 51-year-old male complaining of erythema to the right eye. Patient does appear to have a corneal abrasion but no signs of foreign body. I will discharge with antibiotics. I have low suspicion for visual deficits or globe ruptures. Patient is discharged and recommended follow-up with primary care within 1-2 days for close evaluation. Patient is told symptoms change or worsen to return the ER. All questions answered at discharge Departure Diagnosis: Primary Impression: Corneal abrasion Condition: Stable Patient Instructions: Corneal Abrasion Referrals: [facility] YOU HAVE RECEIVED A MEDICAL SCREENING EXAM AND THE RESULTS INDICATE THAT YOU DO NOT HAVE A CONDITION THAT REQUIRES URGENT TREATMENT IN THE EMERGENCY DEPARTMENT. FURTHER EVALUATION AND TREATMENT OF YOUR CONDITION CAN WAIT UNTIL YOU ARE SEEN IN YOUR DOCTORS OFFICE WITHIN THE NEXT 1-2 DAYS. IT IS YOUR RESPONSIBILITY TO MAKE AN APPOINTMENT FOR FOLOW-UP CARE. IF YOU HAVE A PRIMARY DOCTOR --you should call your primary doctor and schedule an appointment IF YOU DO NOT HAVE A PRIMARY DOCTOR YOU CAN CALL OUR PHYSICIAN REFERRAL HOTLINE AT IF YOU CAN NOT AFFORD TO SEE A PHYSICIAN YOU CAN CHOSE FROM THE FOLLOWING [facility] [address] [facility] [place] [address] [facility] [address] [facility] [address] [facility]. [facility] [address] [facility]. [facility] [address] Additional Instructions: FOLLOW UP WITH YOUR PRIMARY CARE PHYSICIAN TOMORROW.Return to this facility if you are not improving as expected. BRIELLE DUKES PA-C Jul 03, 2017 13:09
--- NOTE | 2017-07-03 13:09 | ERD ---
ER Documentation Chief Complaint Chief Complaint fb in r. ear HPI 51-year-old male complaining of pain to right eye. Patient states he was helping a friend clean backyard yesterday and feels that something may have gotten stuck in his eye. He has tried cleaning out his eye with water at home. Has continued irritation and light sensitivity. Wears glasses but no contacts. Denies any visual disturbances. Denies any headaches. ROS All systems reviewed and are negative except as per history of present illness. Medications Home Meds Active Scripts Ofloxacin* (Ocuflox*) 0.3%-5 Ml Ophth Drops, 1 DROP RIGHT EYE QID, #1 BOTTLE Prov:BRIELLE DUKES PA-C 07/03/17 Ibuprofen* (Ibuprofen*) 400 Mg Tablet, 400 MG PO QID Y for Pain, fever , #30 TAB Prov:STEVIE MORAN MD 01/21/17 Famotidine* (Pepcid*) 20 Mg Tablet, 20 MG PO DAILY, #30 TAB Prov:STEVIE MORAN MD 01/21/17 Clindamycin Hcl* (Clindamycin Hcl*) 300 Mg Capsule, 300 MG PO Q6 for neck abscess , #28 CAP Prov:STEVIE MORAN MD 01/21/17 Allergies Allergies: Coded Allergies: No Known Drug Allergies (Verified Allergy, Unknown, 01/15/17) PMhx/Soc History of Surgery: No Anesthesia Reaction: No Hx Neurological Disorder: No Hx Respiratory Disorders: Yes (BRONCHITIS) Hx Cardiac Disorders: Yes (HTN) Hx Psychiatric Problems: No Hx Miscellaneous Medical Probl: No Hx Alcohol Use: Yes (SOCIAL USE) Hx Substance Use: No Hx Tobacco Use: No Smoking Status: Never smoker Physical Exam Vitals Vital Signs Date Time Temp Pulse Resp B/P Pulse Ox O2 Delivery O2 Flow Rate FiO2 07/03/17 11:50 98.0 101 20 151/93 98 Physical Exam GENERAL: The patient is well-appearing, well-nourished, in no acute distress HEENT: Injection of the right sclera. Small corneal abrasion seen. No foreign body appreciated. NECK: C-spine is soft and supple. There is no meningismus. There is no cervical lymphadenopathy. CHEST: Clear to auscultation bilaterally. There are no rales, wheezes or rhonchi. HEART: Regular rate and rhythm. No murmurs, clicks, rubs or gallops. No S3 or S4. Results 24 hrs Current Medications Medications (Trade) Dose Ordered Sig/Rohan Route PRN Reason Start Time Stop Time Status Last Admin Dose Admin Fluorescein Sodium (Mwrbf-X-Beuxy) 1 strip ONCE ONCE RIGHT EYE 07/03/17 12:30 07/03/17 12:32 DC Tetracaine HCl (Tetracaine 0.5% Steri-Unit Angela) 1 drop ONCE ONCE RIGHT EYE 07/03/17 12:30 07/03/17 12:32 DC Procedures/MDM ER course: Fluorescein stain with tetracaine applied to right eye. Under UV light sclerae was visualized. No foreign body seen. Small circular site of uptake. No corneal lacerations or globe ruptures. MDM: 51-year-old male complaining of erythema to the right eye. Patient does appear to have a corneal abrasion but no signs of foreign body. I will discharge with antibiotics. I have low suspicion for visual deficits or globe ruptures. Patient is discharged and recommended follow-up with primary care within 1-2 days for close evaluation. Patient is told symptoms change or worsen to return the ER. All questions answered at discharge Departure Diagnosis: Primary Impression: Corneal abrasion Condition: Stable Patient Instructions: Corneal Abrasion Referrals: [facility] YOU HAVE RECEIVED A MEDICAL SCREENING EXAM AND THE RESULTS INDICATE THAT YOU DO NOT HAVE A CONDITION THAT REQUIRES URGENT TREATMENT IN THE EMERGENCY DEPARTMENT. FURTHER EVALUATION AND TREATMENT OF YOUR CONDITION CAN WAIT UNTIL YOU ARE SEEN IN YOUR DOCTORS OFFICE WITHIN THE NEXT 1-2 DAYS. IT IS YOUR RESPONSIBILITY TO MAKE AN APPOINTMENT FOR FOLOW-UP CARE. IF YOU HAVE A PRIMARY DOCTOR --you should call your primary doctor and schedule an appointment IF YOU DO NOT HAVE A PRIMARY DOCTOR YOU CAN CALL OUR PHYSICIAN REFERRAL HOTLINE AT IF YOU CAN NOT AFFORD TO SEE A PHYSICIAN YOU CAN CHOSE FROM THE FOLLOWING [facility] [address] [facility] [address] [facility] [address] [facility] [address] [facility]. [facility] [address] [facility]. [facility] [address] Additional Instructions: FOLLOW UP WITH YOUR PRIMARY CARE PHYSICIAN TOMORROW.Return to this facility if you are not improving as expected. BRIELLE DUKES PA-C Jul 03, 2017 13:09
--- NOTE | 2017-07-03 13:09 | ERD ---
ER Documentation Chief Complaint Chief Complaint fb in r. ear HPI 51-year-old male complaining of pain to right eye. Patient states he was helping a friend clean backyard yesterday and feels that something may have gotten stuck in his eye. He has tried cleaning out his eye with water at home. Has continued irritation and light sensitivity. Wears glasses but no contacts. Denies any visual disturbances. Denies any headaches. ROS All systems reviewed and are negative except as per history of present illness. Medications Home Meds Active Scripts Ofloxacin* (Ocuflox*) 0.3%-5 Ml Ophth Drops, 1 DROP RIGHT EYE QID, #1 BOTTLE Prov:BRIELLE DUKES PA-C 07/03/17 Ibuprofen* (Ibuprofen*) 400 Mg Tablet, 400 MG PO QID Y for Pain, fever , #30 TAB Prov:STEVIE MORAN MD 01/21/17 Famotidine* (Pepcid*) 20 Mg Tablet, 20 MG PO DAILY, #30 TAB Prov:STEVIE MORAN MD 01/21/17 Clindamycin Hcl* (Clindamycin Hcl*) 300 Mg Capsule, 300 MG PO Q6 for neck abscess , #28 CAP Prov:STEVIE MORAN MD 01/21/17 Allergies Allergies: Coded Allergies: No Known Drug Allergies (Verified Allergy, Unknown, 01/15/17) PMhx/Soc History of Surgery: No Anesthesia Reaction: No Hx Neurological Disorder: No Hx Respiratory Disorders: Yes (BRONCHITIS) Hx Cardiac Disorders: Yes (HTN) Hx Psychiatric Problems: No Hx Miscellaneous Medical Probl: No Hx Alcohol Use: Yes (SOCIAL USE) Hx Substance Use: No Hx Tobacco Use: No Smoking Status: Never smoker Physical Exam Vitals Vital Signs Date Time Temp Pulse Resp B/P Pulse Ox O2 Delivery O2 Flow Rate FiO2 07/03/17 11:50 98.0 101 20 151/93 98 Physical Exam GENERAL: The patient is well-appearing, well-nourished, in no acute distress HEENT: Injection of the right sclera. Small corneal abrasion seen. No foreign body appreciated. NECK: C-spine is soft and supple. There is no meningismus. There is no cervical lymphadenopathy. CHEST: Clear to auscultation bilaterally. There are no rales, wheezes or rhonchi. HEART: Regular rate and rhythm. No murmurs, clicks, rubs or gallops. No S3 or S4. Results 24 hrs Current Medications Medications (Trade) Dose Ordered Sig/Rohan Route PRN Reason Start Time Stop Time Status Last Admin Dose Admin Fluorescein Sodium (Ehtim-U-Rqyxk) 1 strip ONCE ONCE RIGHT EYE 07/03/17 12:30 07/03/17 12:32 DC Tetracaine HCl (Tetracaine 0.5% Steri-Unit Angela) 1 drop ONCE ONCE RIGHT EYE 07/03/17 12:30 07/03/17 12:32 DC Procedures/MDM ER course: Fluorescein stain with tetracaine applied to right eye. Under UV light sclerae was visualized. No foreign body seen. Small circular site of uptake. No corneal lacerations or globe ruptures. MDM: 51-year-old male complaining of erythema to the right eye. Patient does appear to have a corneal abrasion but no signs of foreign body. I will discharge with antibiotics. I have low suspicion for visual deficits or globe ruptures. Patient is discharged and recommended follow-up with primary care within 1-2 days for close evaluation. Patient is told symptoms change or worsen to return the ER. All questions answered at discharge Departure Diagnosis: Primary Impression: Corneal abrasion Condition: Stable Patient Instructions: Corneal Abrasion Referrals: [facility] YOU HAVE RECEIVED A MEDICAL SCREENING EXAM AND THE RESULTS INDICATE THAT YOU DO NOT HAVE A CONDITION THAT REQUIRES URGENT TREATMENT IN THE EMERGENCY DEPARTMENT. FURTHER EVALUATION AND TREATMENT OF YOUR CONDITION CAN WAIT UNTIL YOU ARE SEEN IN YOUR DOCTORS OFFICE WITHIN THE NEXT 1-2 DAYS. IT IS YOUR RESPONSIBILITY TO MAKE AN APPOINTMENT FOR FOLOW-UP CARE. IF YOU HAVE A PRIMARY DOCTOR --you should call your primary doctor and schedule an appointment IF YOU DO NOT HAVE A PRIMARY DOCTOR YOU CAN CALL OUR PHYSICIAN REFERRAL HOTLINE AT IF YOU CAN NOT AFFORD TO SEE A PHYSICIAN YOU CAN CHOSE FROM THE FOLLOWING [facility] [address] [facility] [address] [facility] [address] [facility] [address] [facility]. [facility] [address] [facility]. [facility] [address] Additional Instructions: FOLLOW UP WITH YOUR PRIMARY CARE PHYSICIAN TOMORROW.Return to this facility if you are not improving as expected. BRIELLE DUKES PA-C Jul 03, 2017 13:09
[2017-07-03 13:17] VITALS: BP 149/100; PULSE 79; RESP 15; TEMP 97.8
== END 2017-07-03 13:18 | disposition home or self-care (01) ==
LOC: FTE 11:41
DX: S05.01XA Injury of conjunctiva and corneal abrasion without foreign body, right eye, initial encounter (principal); I10 Essential (primary) hypertension; W22.8XXA Striking against or struck by other objects, initial encounter; Y92.9 Unspecified place or not applicable
CPT/HCPCS: Z7610 ×2; 99283

== ENCOUNTER 2017-07-16 15:18 | Emergency (ER) | END 2017-07-16 18:23 | disposition home or self-care (01) | DX: H16.001 Unspecified corneal ulcer, right eye (principal); I10 Essential (primary) hypertension | CPT/HCPCS: 76536; Z7502; Z7610 ==